=== PATIENT | female | born 1960 | race Caucasian/White ===

== ENCOUNTER 2017-04-22 13:18 | Emergency (ER) | payer OTHER ==
[~2017-04-22] VITALS: Ht 154.9 cm; Wt 70.4 kg
[~2017-04-22 13:18] MED LIST: BENZ1TAB10 PO; CITA20TA9 PO; CLOZ100 PO; LORA1TAB3 PO
[2017-04-22] MEDS ORDERED: HALO5 PO (13:28)
[2017-04-22] MEDS ORDERED: LORA10TA7 PO (13:28)
[2017-04-22] MEDS ORDERED: CLOZ100 PO (13:28)
[2017-04-22] MEDS ORDERED: METO25 PO (13:28)
[2017-04-22] MEDS ORDERED: BENA20 PO (13:28)
[2017-04-22] MEDS ORDERED: HYDR10 PO (13:28)
[2017-04-22 14:36] LABS: BASOPHILS % (AUTO) 0.5 % (0.0-2.0); EOSINOPHILS % (AUTO) 1.5 % (1.0-6.0); HEMATOCRIT 40.3 % (36-46); LYMPHOCYTES # (AUTO) 2.5 K/uL (1.0-4.8); LYMPHOCYTES % (AUTO) 36.2 % (22.0-44.0); MEAN CORPUSCULAR HEMOGLOBIN 29.5 pg (26.0-34.0); MEAN CORPUSCULAR HGB CONC 32.3 G/dL (31.0-37.0); MEAN CORPUSCULAR VOLUME 91 fL (80-100); MONOCYTES # (AUTO) 0.5 K/uL (0.1-1.0); MONOCYTES % (AUTO) 7.2 % (2.0-9.0); NEUTROPHILS # (AUTO) 3.8 K/uL (1.8-7.7); NEUTROPHILS % (AUTO) 54.6 % (40.0-70.0); PLATELET COUNT (AUTO) 136 K/uL (150-450); RED BLOOD CELL COUNT(AUTO) 4.41 MIL/uL (4.00-5.20); RED CELL DISTRIBUTION WIDTH 14.4 % (11.5-14.5); WHITE BLOOD COUNT (AUTO) 6.9 K/uL (4.5-11.0)
[2017-04-22 14:49] LABS: ANION GAP 9 mmol/L (8-16); CALCIUM, TOTAL 8.5 mg/dL (8.8-10.5); CARBON DIOXIDE 26 mmol/L (22-29); CHLORIDE 108 mmol/L (98-107); CREATININE 0.74 mg/dL (0.60-1.30); GLOMERULAR FILTR. RATE CALC > 60 mL/min (>60); POTASSIUM 3.9 mmol/L (3.5-5.1); SODIUM SERUM 143 mmol/L (136-145); UREA NITROGEN, BLOOD 9 mg/dL (7-18)
[2017-04-22 14:54] LABS: ALANINE AMINOTRANSFERASE 61 U/L (12-78); ALBUMIN 3.6 g/dL (3.4-5.0); ASPARTATE AMINOTRANSFERASE 31 U/L (15-37); BILIRUBIN,TOTAL 0.3 mg/dL (0.1-1.0); TOTAL PROTEIN, SERUM 6.5 g/dL (6.4-8.2)
[2017-04-22] MEDS ORDERED: LORazepam 2 MG TABLET PO ONE (15:45)
[2017-04-22] MEDS ORDERED: HALOPERIDOL 5 MG TABLET PO ONE (15:45)
[2017-04-22 16:06] VITALS: BP 149/89
== END 2017-04-22 16:44 | disposition home or self-care (01) ==
LOC: EMS 13:22 → EEVIPCON 13:22 → EMS 16:44
DX: F20.0 Paranoid schizophrenia (principal); I10 Essential (primary) hypertension; Z87.891 Personal history of nicotine dependence
CPT/HCPCS: 36415; 80053; 85025; 99284; G0480

== ENCOUNTER 2019-05-11 14:27 | Inpatient (IN) | payer MEDICAID, OTHER ==
[~2019-05-11] VITALS: Ht 152.4 cm; Wt 51.3 kg
[~2019-05-11 14:27] MED LIST changes: +BENA20 PO; +CITA-106 PO; -CITA20TA9 PO; +CLON.2 PO; +CLON.5 PO; +DIVA500T69 PO; +HALO5TAB2 PO; +HYDR10TA31 PO; +LEVO75TA10 PO; +LORA10TA7 PO; +METO25 PO
[2019-05-11 17:26] LABS: APPEARANCE,URINE CLOUDY (CLEAR); BILIRUBIN,URINE NEGATIVE (NEGATIVE); GLUCOSE, URINE (UA) NEGATIVE (NEGATIVE); KETONES,URINE TRACE mg/dL (NEGATIVE); LEUKOCYTE ESTERASE ,URINE MODERATE (NEGATIVE); NITRATE,URINE POSITIVE (NEGATIVE); OCCULT BLOOD,URINE NEGATIVE (NEGATIVE); PH,URINE 6.5 (5.0-8.0); PROTEIN,URINE NEGATIVE (NEGATIVE); UROBILINOGEN,URINE 0.2 mg/dL (<=1.0)
[2019-05-11 17:30] LABS: AMPHET/METH SCREEN,URINE NEGATIVE (NEGATIVE); BARBITURATE SCREEN, URINE NEGATIVE (NEGATIVE); BENZODIAZEPINES SCREEN,URINE NEGATIVE (NEGATIVE); CANNABINOID SCREEN,URINE NEGATIVE (NEGATIVE); COCAINE SCREEN,URINE NEGATIVE (NEGATIVE); METHADONE SCREEN, URINE NEGATIVE (NEGATIVE); OPIATE SCREEN,URINE NEGATIVE (NEGATIVE)
[2019-05-11 17:36] LABS: PHENCYCLIDINE SCREEN,URINE NEGATIVE (NEGATIVE)
[2019-05-11 17:42] LABS: BACTERIA,URINE Many /HPF (None Seen); RBC,URINE None Seen /HPF (0-2)
[2019-05-11 17:44] LABS: SQUAMOUS EPITHELIAL CELL,UR Rare /LPF (None Seen)
[2019-05-11 17:54] LABS: BASOPHILS % (AUTO) 0.6 % (0.0-2.0); EOSINOPHILS % (AUTO) 0.7 % (1.0-6.0); HEMATOCRIT 37.8 % (36-46); HEMOGLOBIN 12.9 g/dL (12.0-16.0); LYMPHOCYTES # (AUTO) 1.9 K/uL (1.0-4.8); LYMPHOCYTES % (AUTO) 24.8 % (22.0-44.0); MEAN CORPUSCULAR HEMOGLOBIN 31.9 pg (26.0-34.0); MEAN CORPUSCULAR HGB CONC 34.2 G/dL (31.0-37.0); MEAN CORPUSCULAR VOLUME 93 fL (80-100); MONOCYTES # (AUTO) 0.5 K/uL (0.1-1.0); MONOCYTES % (AUTO) 7.2 % (2.0-9.0); NEUTROPHILS # (AUTO) 5.1 K/uL (1.8-7.7); NEUTROPHILS % (AUTO) 66.7 % (40.0-70.0); PLATELET COUNT (AUTO) 216 K/uL (150-450); RED BLOOD CELL COUNT(AUTO) 4.05 MIL/uL (4.00-5.20); RED CELL DISTRIBUTION WIDTH 14.2 % (11.5-14.5)
[2019-05-11 18:10] LABS: ANION GAP 12 mmol/L (8-16); CALCIUM, TOTAL 9.8 mg/dL (8.8-10.5); CARBON DIOXIDE 25 mmol/L (22-29); CHLORIDE 107 mmol/L (98-107); CREATININE 0.71 mg/dL (0.60-1.30); GLOMERULAR FILTR. RATE CALC > 60 mL/min (>60); GLUCOSE,RANDOM 105 mg/dL (70-110); POTASSIUM 3.9 mmol/L (3.5-5.1); SODIUM SERUM 144 mmol/L (136-145); UREA NITROGEN, BLOOD 19 mg/dL (7-18)
[2019-05-11 18:25] LABS: ALANINE AMINOTRANSFERASE 13 U/L (12-78); ALBUMIN 3.9 g/dL (3.4-5.0); ALKALINE PHOSPHATASE 119 U/L (46-116); ASPARTATE AMINOTRANSFERASE 14 U/L (15-37); BILIRUBIN,TOTAL 0.3 mg/dL (0.1-1.0); THYROID STIMULATING HORMONE 7.73 uIU/mL (0.36-3.74); TOTAL PROTEIN, SERUM 8.2 g/dL (6.4-8.2); VALPROIC ACID 62 mcg/mL (50-100)
[2019-05-11] MEDS ORDERED: NITROFURANTOIN/NITROFURAN MAC 100 MG CAPSULE [MACROBID] PO ONE (20:30)
[2019-05-12] MEDS ORDERED: HALOPERIDOL 5 MG TABLET PO PRN (01:30)
[2019-05-12] MEDS ORDERED: LORazepam 2 MG TABLET PO PRN (01:30)
[2019-05-12] MEDS: ZOLPIDEM TARTRATE 10 MG TABLET PO PRN (03:10)
[2019-05-12 04:12] VITALS: BP 139/81
[2019-05-12] MEDS ORDERED: PNEUMOCOCCAL VACCINE POLYVALENT 0.5 ML VIAL [PPSV23] IM ONE (04:30)
[2019-05-12] MEDS ORDERED: CloNIDine HCL 0.1 MG TABLET PO PRN (08:15)
[2019-05-12] MEDS: NITROFURANTOIN/NITROFURAN MAC 100 MG CAPSULE [MACROBID] PO SCH ×2 (09:57→16:52)
[2019-05-12] MEDS: BENAZEPRIL HCL 20 MG TABLET PO SCH (09:57)
[2019-05-12] MEDS: LORATADINE 10 MG TABLET PO SCH (09:58)
[2019-05-12] MEDS: METOPROLOL TARTRATE 25 MG TABLET PO SCH (09:58)
[2019-05-12] MEDS ORDERED: GEMF600T5 PO (10:47)
[2019-05-12] MEDS ORDERED: OMEP20 PO (10:47)
[2019-05-12] MEDS ORDERED: DIVA-78 PO (10:47)
[2019-05-12 13:20] VITALS: BP 132/96
[2019-05-12 16:50] VITALS: BP 107/65
[2019-05-12] MEDS: CloZAPine 100 MG TABLET PO SCH (16:52)
[2019-05-12] MEDS: GEMFIBROZIL 600 MG TABLET PO SCH (16:52)
[2019-05-12] MEDS: OMEPRAZOLE 20 MG CAPSULE PO SCH (16:53)
[2019-05-12] MEDS: DIVALPROEX SODIUM 500 MG DR TABLET PO SCH (20:23)
[2019-05-13] MEDS: GEMFIBROZIL 600 MG TABLET PO SCH ×2 (06:09→17:32)
[2019-05-13] MEDS: LEVOTHYROXINE SODIUM 75 MCG TABLET PO SCH (06:09)
[2019-05-13 07:30] LABS: CHOL/HDL RATIO 5.8 (3.9-5.7)
[2019-05-13 08:00] VITALS: BP 112/74
[2019-05-13] MEDS: OMEPRAZOLE 20 MG CAPSULE PO SCH ×2 (08:50→17:32)
[2019-05-13] MEDS: CloZAPine 100 MG TABLET PO SCH ×2 (08:51→17:32)
[2019-05-13] MEDS: LORATADINE 10 MG TABLET PO SCH (08:52)
[2019-05-13] MEDS: BENAZEPRIL HCL 20 MG TABLET PO SCH (08:52)
[2019-05-13] MEDS: NITROFURANTOIN/NITROFURAN MAC 100 MG CAPSULE [MACROBID] PO SCH ×2 (08:52→17:32)
[2019-05-13] MEDS: METOPROLOL TARTRATE 25 MG TABLET PO SCH (08:52)
[2019-05-13 18:37] VITALS: BP 114/72
[2019-05-13] MEDS: DIVALPROEX SODIUM 500 MG DR TABLET PO SCH (20:44)
[2019-05-14] MEDS: LEVOTHYROXINE SODIUM 75 MCG TABLET PO SCH (06:55)
[2019-05-14] MEDS: GEMFIBROZIL 600 MG TABLET PO SCH ×2 (06:56→17:16)
[2019-05-14 08:10] VITALS: BP 96/65
[2019-05-14] MEDS: METOPROLOL TARTRATE 25 MG TABLET PO SCH ×2 (09:00→09:51)
[2019-05-14] MEDS: BENAZEPRIL HCL 20 MG TABLET PO SCH ×2 (09:00→09:51)
[2019-05-14] MEDS: LORATADINE 10 MG TABLET PO SCH (09:51)
[2019-05-14] MEDS: CloZAPine 100 MG TABLET PO SCH ×2 (09:51→17:15)
[2019-05-14] MEDS: NITROFURANTOIN/NITROFURAN MAC 100 MG CAPSULE [MACROBID] PO SCH ×2 (09:51→17:15)
[2019-05-14] MEDS: OMEPRAZOLE 20 MG CAPSULE PO SCH ×2 (09:52→17:15)
[2019-05-14 17:00] VITALS: BP 105/68
[2019-05-14] MEDS: DIVALPROEX SODIUM 500 MG DR TABLET PO SCH (20:27)
[2019-05-15] MEDS: LEVOTHYROXINE SODIUM 75 MCG TABLET PO SCH (06:01)
[2019-05-15] MEDS: GEMFIBROZIL 600 MG TABLET PO SCH ×2 (06:01→16:32)
[2019-05-15 06:35] LABS: FREE T4 (FREE THYROXINE) 0.94 ng/dL (0.76-1.46); THYROID STIMULATING HORMONE 1.95 uIU/mL (0.36-3.74)
[2019-05-15 08:27] VITALS: BP 96/65
[2019-05-15 09:35] VITALS: BP 111/71
[2019-05-15] MEDS: CloZAPine 100 MG TABLET PO SCH ×2 (09:39→16:32)
[2019-05-15] MEDS: OMEPRAZOLE 20 MG CAPSULE PO SCH ×2 (09:40→16:32)
[2019-05-15] MEDS: LORATADINE 10 MG TABLET PO SCH (09:40)
[2019-05-15] MEDS: NITROFURANTOIN/NITROFURAN MAC 100 MG CAPSULE [MACROBID] PO SCH ×2 (09:40→16:32)
[2019-05-15] MEDS: BENAZEPRIL HCL 20 MG TABLET PO SCH (09:40)
[2019-05-15] MEDS: METOPROLOL TARTRATE 25 MG TABLET PO SCH (09:40)
[2019-05-15 16:54] VITALS: BP 145/86
[2019-05-15] MEDS: DIVALPROEX SODIUM 500 MG DR TABLET PO SCH (20:27)
[2019-05-16] MEDS: LEVOTHYROXINE SODIUM 75 MCG TABLET PO SCH (06:16)
[2019-05-16] MEDS: GEMFIBROZIL 600 MG TABLET PO SCH ×2 (06:16→16:24)
[2019-05-16] MEDS: METOPROLOL TARTRATE 25 MG TABLET PO SCH (09:00)
[2019-05-16] MEDS: BENAZEPRIL HCL 20 MG TABLET PO SCH (09:00)
[2019-05-16 09:47] VITALS: BP 105/84
[2019-05-16] MEDS: CloZAPine 100 MG TABLET PO SCH ×2 (09:55→16:24)
[2019-05-16] MEDS: LORATADINE 10 MG TABLET PO SCH (09:55)
[2019-05-16] MEDS: NITROFURANTOIN/NITROFURAN MAC 100 MG CAPSULE [MACROBID] PO SCH ×2 (09:56→16:24)
[2019-05-16] MEDS: OMEPRAZOLE 20 MG CAPSULE PO SCH ×2 (09:56→16:24)
[2019-05-16 16:00] VITALS: BP 119/78
[2019-05-16] MEDS: DIVALPROEX SODIUM 500 MG DR TABLET PO SCH (20:05)
[2019-05-16] MEDS: ZOLPIDEM TARTRATE 10 MG TABLET PO PRN (22:36)
[2019-05-17] MEDS: GEMFIBROZIL 600 MG TABLET PO SCH ×2 (06:00→17:20)
[2019-05-17] MEDS: LEVOTHYROXINE SODIUM 75 MCG TABLET PO SCH (06:00)
[2019-05-17 08:51] VITALS: BP 145/86
[2019-05-17] MEDS: CloZAPine 100 MG TABLET PO SCH ×2 (09:31→17:20)
[2019-05-17] MEDS: LORATADINE 10 MG TABLET PO SCH (09:31)
[2019-05-17] MEDS: METOPROLOL TARTRATE 25 MG TABLET PO SCH (09:31)
[2019-05-17] MEDS: BENAZEPRIL HCL 20 MG TABLET PO SCH (09:32)
[2019-05-17] MEDS: OMEPRAZOLE 20 MG CAPSULE PO SCH ×2 (09:32→17:20)
[2019-05-17] MEDS ORDERED: IBUPROFEN 600 MG TABLET PO PRN (12:15)
[2019-05-17] MEDS ORDERED: ACETAMINOPHEN 325 MG TABLET PO PRN (12:15)
[2019-05-17 19:17] VITALS: BP 136/71
[2019-05-17] MEDS: DIVALPROEX SODIUM 500 MG DR TABLET PO SCH ×2 (20:18→20:49)
[2019-05-17] MEDS: ZOLPIDEM TARTRATE 10 MG TABLET PO PRN (20:52)
[2019-05-18 06:29] LABS: BASOPHILS % (AUTO) 0.6 % (0.0-2.0); EOSINOPHILS % (AUTO) 2.8 % (1.0-6.0); HEMOGLOBIN 10.4 g/dL (12.0-16.0); LYMPHOCYTES # (AUTO) 2.4 K/uL (1.0-4.8); LYMPHOCYTES % (AUTO) 43.8 % (22.0-44.0); MEAN CORPUSCULAR HEMOGLOBIN 31.9 pg (26.0-34.0); MEAN CORPUSCULAR HGB CONC 33.6 G/dL (31.0-37.0); MEAN CORPUSCULAR VOLUME 95 fL (80-100); MONOCYTES # (AUTO) 0.6 K/uL (0.1-1.0); NEUTROPHILS # (AUTO) 2.4 K/uL (1.8-7.7); NEUTROPHILS % (AUTO) 42.8 % (40.0-70.0); PLATELET COUNT (AUTO) 144 K/uL (150-450); RED BLOOD CELL COUNT(AUTO) 3.26 MIL/uL (4.00-5.20); RED CELL DISTRIBUTION WIDTH 13.8 % (11.5-14.5)
[2019-05-18] MEDS: LEVOTHYROXINE SODIUM 75 MCG TABLET PO SCH (06:50)
[2019-05-18] MEDS: GEMFIBROZIL 600 MG TABLET PO SCH (06:50)
[2019-05-18] MEDS: CloZAPine 100 MG TABLET PO SCH (09:12)
[2019-05-18] MEDS: METOPROLOL TARTRATE 25 MG TABLET PO SCH (09:12)
[2019-05-18] MEDS: BENAZEPRIL HCL 20 MG TABLET PO SCH (09:12)
[2019-05-18] MEDS: LORATADINE 10 MG TABLET PO SCH (09:12)
[2019-05-18] MEDS: OMEPRAZOLE 20 MG CAPSULE PO SCH (09:12)
[2019-05-18 09:18] VITALS: BP 147/88
== END 2019-05-18 14:45 | disposition home or self-care (01) | DRG 750 ==
LOC: EMS 14:36 → 3EI 05-12 02:45
PROVIDERS: ADMIT Psychiatry & Neurology Psychiatry; ATTEND Psychiatry & Neurology Psychiatry
DX: F20.0 Paranoid schizophrenia (principal); E03.9 Hypothyroidism, unspecified; F32.9 Major depressive disorder, single episode, unspecified; I10 Essential (primary) hypertension; N39.0 Urinary tract infection, site not specified; R32 Unspecified urinary incontinence; G47.00 Insomnia, unspecified; Z87.891 Personal history of nicotine dependence
CPT/HCPCS: 80074; 83036; 84439; 84443; 87081; 87086; G0480

== ENCOUNTER 2019-10-15 21:57 | Inpatient (IN) | payer MEDICAID, OTHER ==
[~2019-10-15] VITALS: Ht 154.9 cm; Wt 54.5 kg
[~2019-10-15 21:57] MED LIST changes: -BENA20 PO; +BENA20TA11 PO; -BENZ1TAB10 PO; -CITA-106 PO; -CLON.2 PO; -CLON.5 PO; +DIVA-78 PO; -DIVA500T69 PO; +GEMF600T5 PO; -HALO5TAB2 PO; -HYDR10TA31 PO; -LORA1TAB3 PO; +OMEP20 PO
[2019-10-16 01:59] LABS: ANION GAP 10 mmol/L (8-16); CALCIUM, TOTAL 9.6 mg/dL (8.8-10.5); CARBON DIOXIDE 26 mmol/L (22-29); CHLORIDE 104 mmol/L (98-107); CREATININE 0.68 mg/dL (0.60-1.30); GLOMERULAR FILTR. RATE CALC > 60 mL/min (>60); GLUCOSE,RANDOM 127 mg/dL (70-110); POTASSIUM 3.4 mmol/L (3.5-5.1); SODIUM SERUM 140 mmol/L (136-145); UREA NITROGEN, BLOOD 19 mg/dL (7-18)
[2019-10-16 02:00] LABS: BASOPHILS % (AUTO) 0.7 % (0.0-2.0); EOSINOPHILS % (AUTO) 1.9 % (1.0-6.0); HEMATOCRIT 30.9 % (36-46); HEMOGLOBIN 10.6 g/dL (12.0-16.0); LYMPHOCYTES # (AUTO) 2.2 K/uL (1.0-4.8); LYMPHOCYTES % (AUTO) 31.3 % (22.0-44.0); MEAN CORPUSCULAR HGB CONC 34.2 G/dL (31.0-37.0); MEAN CORPUSCULAR VOLUME 94 fL (80-100); MONOCYTES # (AUTO) 0.9 K/uL (0.1-1.0); NEUTROPHILS # (AUTO) 3.9 K/uL (1.8-7.7); NEUTROPHILS % (AUTO) 54.1 % (40.0-70.0); PLATELET COUNT (AUTO) 149 K/uL (150-450); RED CELL DISTRIBUTION WIDTH 14.2 % (11.5-14.5)
[2019-10-16 02:05] LABS: ALANINE AMINOTRANSFERASE 46 U/L (12-78); ALBUMIN 3.7 g/dL (3.4-5.0); ALKALINE PHOSPHATASE 107 U/L (46-116); ASPARTATE AMINOTRANSFERASE 88 U/L (15-37); BILIRUBIN,TOTAL 0.2 mg/dL (0.1-1.0); TOTAL PROTEIN, SERUM 7.4 g/dL (6.4-8.2)
[2019-10-16] MEDS ORDERED: ZOLPIDEM TARTRATE 10 MG TABLET PO PRN (02:15)
[2019-10-16] MEDS ORDERED: HALOPERIDOL 5 MG TABLET PO PRN (02:15)
[2019-10-16] MEDS ORDERED: LORazepam 2 MG TABLET PO PRN (02:15)
[2019-10-16 08:32] LABS: GLUCOSE,POINT OF CARE 120 MG/DL (70-110)
[2019-10-16] MEDS ORDERED: POTASSIUM CHLORIDE 20 MEQ ER TABLET PO ONE (18:15)
[2019-10-17] MEDS ORDERED: INFLUENZA VIRUS VACCINE QVS 2019-20 (3YR+)/PF 60 MCG/0.5 ML SYRINGE IM ONE (04:15)
[2019-10-17] MEDS ORDERED: PNEUMOCOCCAL VACCINE POLYVALENT 0.5 ML VIAL [PPSV23] IM ONE (04:15)
[2019-10-17 06:00] VITALS: BP 119/71
[2019-10-17] MEDS: GEMFIBROZIL 600 MG TABLET PO SCH ×2 (06:43→17:04)
[2019-10-17] MEDS: LEVOTHYROXINE SODIUM 75 MCG TABLET PO SCH (06:43)
[2019-10-17] MEDS: METOPROLOL TARTRATE 25 MG TABLET PO SCH (08:35)
[2019-10-17] MEDS: OMEPRAZOLE 20 MG CAPSULE PO SCH ×2 (08:35→17:04)
[2019-10-17] MEDS: LORATADINE 10 MG TABLET PO SCH (08:35)
[2019-10-17] MEDS: BENAZEPRIL HCL 10 MG TABLET PO SCH (08:35)
[2019-10-17] MEDS: CloZAPine 100 MG TABLET PO SCH ×2 (08:36→17:04)
[2019-10-17 08:51] VITALS: BP 130/74
[2019-10-17] MEDS ORDERED: BENAZEPRIL HCL 20 MG TABLET PO SCH (09:00)
[2019-10-17] MEDS ORDERED: DOCUSATE SODIUM 100 MG CAPSULE PO SCH (09:00)
[2019-10-17 09:13] LABS: HEMOGLOBIN A1C 5.2 % (4.5-6.2)
[2019-10-17] MEDS ORDERED: BISACODYL 5 MG EC TABLET PO PRN (09:30)
[2019-10-17] MEDS ORDERED: LACTULOSE 20 GM/30 ML SOLUTION UDCUP PO PRN (09:30)
[2019-10-17 09:32] LABS: CHOL/HDL RATIO 5.4 (3.9-5.7); FREE T4 (FREE THYROXINE) 1.07 ng/dL (0.76-1.46); POTASSIUM 3.6 mmol/L (3.5-5.1); THYROID STIMULATING HORMONE 2.23 uIU/mL (0.36-3.74)
[2019-10-17] MEDS: DOCUSATE SODIUM 250 MG CAPSULE PO SCH (17:04)
[2019-10-17] MEDS: DIVALPROEX SODIUM 500 MG DR TABLET PO SCH (20:16)
[2019-10-18] MEDS: GEMFIBROZIL 600 MG TABLET PO SCH ×2 (06:36→16:09)
[2019-10-18] MEDS: LEVOTHYROXINE SODIUM 75 MCG TABLET PO SCH (06:36)
[2019-10-18 06:39] VITALS: BP 106/62
[2019-10-18 08:30] VITALS: BP 112/77
[2019-10-18] MEDS: DOCUSATE SODIUM 250 MG CAPSULE PO SCH ×2 (08:30→16:09)
[2019-10-18] MEDS: LORATADINE 10 MG TABLET PO SCH (08:30)
[2019-10-18] MEDS: BENAZEPRIL HCL 10 MG TABLET PO SCH (08:30)
[2019-10-18] MEDS: CloZAPine 100 MG TABLET PO SCH ×2 (08:30→16:09)
[2019-10-18] MEDS: OMEPRAZOLE 20 MG CAPSULE PO SCH ×2 (08:30→16:09)
[2019-10-18] MEDS: METOPROLOL TARTRATE 25 MG TABLET PO SCH (08:30)
[2019-10-18 16:18] VITALS: BP 100/64
[2019-10-18] MEDS: DIVALPROEX SODIUM 500 MG DR TABLET PO SCH (20:12)
[2019-10-19 03:10] VITALS: BP 100/60
[2019-10-19] MEDS: LEVOTHYROXINE SODIUM 75 MCG TABLET PO SCH (06:31)
[2019-10-19] MEDS: GEMFIBROZIL 600 MG TABLET PO SCH ×2 (06:31→16:43)
[2019-10-19 08:33] VITALS: BP 111/72
[2019-10-19] MEDS: DOCUSATE SODIUM 250 MG CAPSULE PO SCH ×2 (08:37→16:43)
[2019-10-19] MEDS: METOPROLOL TARTRATE 25 MG TABLET PO SCH (08:37)
[2019-10-19] MEDS: LORATADINE 10 MG TABLET PO SCH (08:37)
[2019-10-19] MEDS: OMEPRAZOLE 20 MG CAPSULE PO SCH ×2 (08:37→16:43)
[2019-10-19] MEDS: BENAZEPRIL HCL 10 MG TABLET PO SCH (08:37)
[2019-10-19] MEDS: CloZAPine 100 MG TABLET PO SCH ×2 (08:38→16:43)
[2019-10-19] MEDS: IBUPROFEN 400 MG TABLET PO PRN (08:59)
[2019-10-19] MEDS: DIVALPROEX SODIUM 500 MG DR TABLET PO SCH (20:19)
[2019-10-19 20:40] VITALS: BP 111/62
[2019-10-20 06:26] VITALS: BP 100/60
[2019-10-20 06:29] VITALS: BP 100/60
[2019-10-20] MEDS: LEVOTHYROXINE SODIUM 75 MCG TABLET PO SCH (06:42)
[2019-10-20] MEDS: GEMFIBROZIL 600 MG TABLET PO SCH (06:42)
[2019-10-20 08:07] VITALS: BP 105/64
[2019-10-20 08:20] VITALS: BP 117/74
[2019-10-20] MEDS: LORATADINE 10 MG TABLET PO SCH (08:21)
[2019-10-20] MEDS: CloZAPine 100 MG TABLET PO SCH (08:21)
[2019-10-20] MEDS: DOCUSATE SODIUM 250 MG CAPSULE PO SCH (08:21)
[2019-10-20] MEDS: OMEPRAZOLE 20 MG CAPSULE PO SCH (08:21)
[2019-10-20] MEDS: METOPROLOL TARTRATE 25 MG TABLET PO SCH (08:21)
[2019-10-20] MEDS: BENAZEPRIL HCL 10 MG TABLET PO SCH (08:21)
[2019-10-20] MEDS: IBUPROFEN 400 MG TABLET PO PRN (08:37)
[2019-10-20] MEDS ORDERED: BENA10TA12 PO (11:13)
== END 2019-10-20 13:30 | disposition home or self-care (01) | DRG 750 ==
LOC: EMS 21:58 → B2S 10-16 06:53
PROVIDERS: ADMIT Psychiatry & Neurology Psychiatry; ATTEND Psychiatry & Neurology Psychiatry
DX: F20.0 Paranoid schizophrenia (principal); E03.9 Hypothyroidism, unspecified; E78.5 Hyperlipidemia, unspecified; E87.6 Hypokalemia; F44.9 Dissociative and conversion disorder, unspecified; I10 Essential (primary) hypertension; J30.9 Allergic rhinitis, unspecified; G47.00 Insomnia, unspecified; K21.9 Gastro-esophageal reflux disease without esophagitis; Z87.891 Personal history of nicotine dependence
CPT/HCPCS: 80074; 80159; 83036; 84132; 84439; 84443; 93005; G0480

== ENCOUNTER 2019-10-16 09:38 | Emergency (ER) | payer MEDICAID, OTHER ==
[~2019-10-16] VITALS: Ht 154.9 cm; Wt 64.1 kg
[2019-10-16 10:10] LABS: BASOPHILS % (AUTO) 0.5 % (0.0-2.0); EOSINOPHILS % (AUTO) 2.8 % (1.0-6.0); HEMATOCRIT 30.2 % (36-46); HEMOGLOBIN 10.4 g/dL (12.0-16.0); LYMPHOCYTES # (AUTO) 1.6 K/uL (1.0-4.8); LYMPHOCYTES % (AUTO) 26.8 % (22.0-44.0); MEAN CORPUSCULAR HEMOGLOBIN 32.2 pg (26.0-34.0); MEAN CORPUSCULAR HGB CONC 34.6 G/dL (31.0-37.0); MEAN CORPUSCULAR VOLUME 93 fL (80-100); MONOCYTES # (AUTO) 0.6 K/uL (0.1-1.0); MONOCYTES % (AUTO) 9.8 % (2.0-9.0); NEUTROPHILS # (AUTO) 3.6 K/uL (1.8-7.7); NEUTROPHILS % (AUTO) 60.1 % (40.0-70.0); PLATELET COUNT (AUTO) 150 K/uL (150-450); RED BLOOD CELL COUNT(AUTO) 3.24 MIL/uL (4.00-5.20); RED CELL DISTRIBUTION WIDTH 14.2 % (11.5-14.5)
[2019-10-16 10:12] LABS: ABG A-A DIFF O2 21.3 mmHg (10-20.0); ABG BASE EXCESS -2.7 mmol/L (-2.0-3.0); ABG CARBOXYHEMOGLOBIN 0.3 % (0.0-1.5); ABG HCO3 22.5 mmol/L (22.0-26.0); ABG METHEMOGLOBIN 0.2 % (0.0-1.5); ABG OXYGEN SATURATION 95.2 % (95.0-98.0); ABG OXYHEMOGLOBIN 94.7 % (94.0-100.0); ABG PCO2 36 mmHg (35-45); ABG PH 7.408 (7.35-7.450); ABG TOTAL HEMOGLOBIN 10.4 G/dL (12.0-18.0); PO2, ARTERIAL BG 86.1 mmHg (84.0-92.0); SOURCE, BLOOD GAS ARTERIAL; TEMPERATURE, FAHRENHEIT, BG 97.5 FAHREN (96.0-98.6)
[2019-10-16 10:13] LABS: SITE, BLOOD GAS LFT RADIAL
[2019-10-16 10:14] LABS: O2 DEVICE,BLOOD GAS ROOM AIR (ROOM AIR)
[2019-10-16 10:19] LABS: ANION GAP 9 mmol/L (8-16); CALCIUM, TOTAL 9.1 mg/dL (8.8-10.5); CARBON DIOXIDE 25 mmol/L (22-29); CHLORIDE 105 mmol/L (98-107); CREATININE 0.59 mg/dL (0.60-1.30); GLOMERULAR FILTR. RATE CALC > 60 mL/min (>60); GLUCOSE,RANDOM 121 mg/dL (70-110); POTASSIUM 4.1 mmol/L (3.5-5.1); SODIUM SERUM 139 mmol/L (136-145); UREA NITROGEN, BLOOD 14 mg/dL (7-18)
[2019-10-16 10:28] LABS: AMMONIA 16 umol/L (11-32); TROPONIN I < 0.02 ng/mL (0.00-0.05)
[2019-10-16 11:09] VITALS: BP 139/52
== END 2019-10-16 11:30 | disposition home or self-care (01) ==
LOC: EMS 09:41
DX: F20.0 Paranoid schizophrenia (principal); F44.9 Dissociative and conversion disorder, unspecified; F20.2 Catatonic schizophrenia; R53.83 Other fatigue; I10 Essential (primary) hypertension; G47.00 Insomnia, unspecified; Z87.891 Personal history of nicotine dependence; Z79.899 Other long term (current) drug therapy; Z98.890 Other specified postprocedural states
CPT/HCPCS: 36600; 51702; 82805

== ENCOUNTER 2020-06-25 14:54 | Emergency (ER) | payer OTHER ==
[~2020-06-25] VITALS: Ht 157.5 cm; Wt 68.2 kg
[~2020-06-25 14:54] MED LIST changes: +BENA10TA77 PO; -BENA20TA11 PO; -CLOZ100 PO; +CLOZ100T32 PO; +DIVA-112 PO; -DIVA-78 PO
[2020-06-25] MEDS ORDERED: DIAZ2 PO (15:22)
[2020-06-25] MEDS ORDERED: DIVA125T32 PO (15:22)
[2020-06-25] MEDS ORDERED: CLON.5 PO (15:22)
[2020-06-25] MEDS ORDERED: CLOZ25TA5 PO (15:22)
[2020-06-25 15:40] LABS: BASOPHILS % (AUTO) 0.5 % (0.0-2.0); EOSINOPHILS % (AUTO) 0.6 % (1.0-6.0); HEMATOCRIT 36.2 % (36-46); HEMOGLOBIN 12.4 g/dL (12.0-16.0); LYMPHOCYTES # (AUTO) 1.9 K/uL (1.0-4.8); LYMPHOCYTES % (AUTO) 28.9 % (22.0-44.0); MEAN CORPUSCULAR HEMOGLOBIN 32.2 pg (26.0-34.0); MEAN CORPUSCULAR HGB CONC 34.4 G/dL (31.0-37.0); MEAN CORPUSCULAR VOLUME 94 fL (80-100); MONOCYTES # (AUTO) 0.6 K/uL (0.1-1.0); MONOCYTES % (AUTO) 8.6 % (2.0-9.0); NEUTROPHILS % (AUTO) 61.4 % (40.0-70.0); PLATELET COUNT (AUTO) 121 K/uL (150-450); RED BLOOD CELL COUNT(AUTO) 3.87 MIL/uL (4.00-5.20); RED CELL DISTRIBUTION WIDTH 14.3 % (11.5-14.5)
[2020-06-25 15:49] LABS: ANION GAP 10 mmol/L (8-16); CALCIUM, TOTAL 9.5 mg/dL (8.8-10.5); CARBON DIOXIDE 26 mmol/L (22-29); CHLORIDE 105 mmol/L (98-107); CREATININE 0.88 mg/dL (0.60-1.30); GLOMERULAR FILTR. RATE CALC > 60 mL/min (>60); GLUCOSE,RANDOM 114 mg/dL (70-110); POTASSIUM 4.1 mmol/L (3.5-5.1); SODIUM SERUM 141 mmol/L (136-145); UREA NITROGEN, BLOOD 19 mg/dL (7-18)
[2020-06-25 15:56] LABS: ALANINE AMINOTRANSFERASE 25 U/L (12-78); ALKALINE PHOSPHATASE 132 U/L (46-116); ASPARTATE AMINOTRANSFERASE 19 U/L (15-37); BILIRUBIN,TOTAL 0.2 mg/dL (0.1-1.0); TOTAL PROTEIN, SERUM 7.4 g/dL (6.4-8.2); VALPROIC ACID 33 mcg/mL (50-100)
[2020-06-25 18:11] VITALS: BP 128/40
[2020-06-25] MEDS ORDERED: HALOPERIDOL 5 MG TABLET PO ONE (18:30)
== END 2020-06-25 19:46 | disposition home or self-care (01) ==
LOC: EMS 14:55
DX: F20.9 Schizophrenia, unspecified (principal); I10 Essential (primary) hypertension; Z87.891 Personal history of nicotine dependence; Z79.899 Other long term (current) drug therapy
CPT/HCPCS: 36415; 80053; 80164; 85025; 99284; G0480

== ENCOUNTER 2022-03-31 17:19 | Emergency (ER) | payer OTHER ==
[~2022-03-31] VITALS: Ht 154.9 cm; Wt 62.0 kg
[~2022-03-31 17:19] MED LIST changes: +CLON-592 PO; +CLOZ25TA5 PO; +DIAZ2 PO; +DIVA125T32 PO; -GEMF600T5 PO; +GEMF600T90 PO
[2022-03-31 17:59] LABS: BASOPHILS % (AUTO) 0.9 % (0.0-2.0); EOSINOPHILS % (AUTO) 2.2 % (1.0-6.0); HEMATOCRIT 38.8 % (36-46); HEMOGLOBIN 12.9 g/dL (12.0-16.0); LYMPHOCYTES # (AUTO) 2.9 K/uL (1.0-4.8); LYMPHOCYTES % (AUTO) 48.1 % (22.0-44.0); MEAN CORPUSCULAR HEMOGLOBIN 30.4 pg (26.0-34.0); MEAN CORPUSCULAR HGB CONC 33.4 G/dL (31.0-37.0); MEAN CORPUSCULAR VOLUME 91 fL (80-100); MONOCYTES # (AUTO) 0.4 K/uL (0.1-1.0); MONOCYTES % (AUTO) 7.3 % (2.0-9.0); NEUTROPHILS # (AUTO) 2.5 K/uL (1.8-7.7); NEUTROPHILS % (AUTO) 41.5 % (40.0-70.0); PLATELET COUNT (AUTO) 169 K/uL (150-450); RED BLOOD CELL COUNT(AUTO) 4.26 MIL/uL (4.00-5.20); RED CELL DISTRIBUTION WIDTH 13.9 % (11.5-14.5)
[2022-03-31] MEDS ORDERED: DIVA-112 PO (18:03)
[2022-03-31] MEDS ORDERED: ATOR20TA86 PO (18:03)
[2022-03-31] MEDS ORDERED: OLAN10TA22 PO (18:03)
[2022-03-31] MEDS ORDERED: TRAZ150T79 PO (18:03)
[2022-03-31 18:05] LABS: ANION GAP 9 mmol/L (8-16); CALCIUM, TOTAL 9.5 mg/dL (8.8-10.5); CARBON DIOXIDE 26 mmol/L (22-29); CHLORIDE 104 mmol/L (98-107); CREATININE 0.89 mg/dL (0.60-1.30); GLOMERULAR FILTR. RATE CALC > 60 mL/min (>60); GLUCOSE,RANDOM 127 mg/dL (70-110); POTASSIUM 4.3 mmol/L (3.5-5.1); SODIUM SERUM 139 mmol/L (136-145); UREA NITROGEN, BLOOD 20 mg/dL (7-18)
[2022-03-31 18:05] LABS: AMPHET/METH SCREEN,URINE NEGATIVE (NEGATIVE); BARBITURATE SCREEN, URINE NEGATIVE (NEGATIVE); BENZODIAZEPINES SCREEN,URINE NEGATIVE (NEGATIVE); CANNABINOID SCREEN,URINE NEGATIVE (NEGATIVE); COCAINE SCREEN,URINE NEGATIVE (NEGATIVE); METHADONE SCREEN, URINE NEGATIVE (NEGATIVE); OPIATE SCREEN,URINE NEGATIVE (NEGATIVE)
[2022-03-31 18:06] LABS: PHENCYCLIDINE SCREEN,URINE NEGATIVE (NEGATIVE)
[2022-03-31 18:11] LABS: ALANINE AMINOTRANSFERASE 60 U/L (12-78); ALBUMIN 3.4 g/dL (3.4-5.0); ALKALINE PHOSPHATASE 73 U/L (46-116); ASPARTATE AMINOTRANSFERASE 38 U/L (15-37); BILIRUBIN,TOTAL 0.2 mg/dL (0.1-1.0); TOTAL PROTEIN, SERUM 7.2 g/dL (6.4-8.2)
[2022-03-31 18:25] LABS: VALPROIC ACID 65 mcg/mL (50-100)
[2022-03-31 19:15] VITALS: BP 129/74
== END 2022-03-31 19:19 | disposition home or self-care (01) ==
LOC: EMS 17:22
DX: F20.0 Paranoid schizophrenia (principal); I10 Essential (primary) hypertension; E78.00 Pure hypercholesterolemia, unspecified; Z87.891 Personal history of nicotine dependence
CPT/HCPCS: 36415; 80053; 80164; 80307; 85025; 99283; G0480

== ENCOUNTER 2023-02-01 12:13 | Inpatient (IN) | payer MEDICAID, OTHER ==
[~2023-02-01] VITALS: Ht 154.9 cm; Wt 65.9 kg
[~2023-02-01 12:13] MED LIST changes: +ATOR20TA86 PO; -CLOZ100T32 PO; -CLOZ25TA5 PO; -DIVA125T32 PO; -GEMF600T90 PO; -LORA10TA7 PO; +OLAN10TA22 PO; -OMEP20 PO; +TRAZ150T79 PO
[2023-02-01] MEDS ORDERED: OLANZapine 5 MG RAPDIS TABLET PO ONE (15:30)
[2023-02-01] MEDS ORDERED: DiphenhydrAMINE HCL 50 MG CAPSULE PO ONE (15:30)
[2023-02-01] MEDS ORDERED: LORazepam 2 MG TABLET PO ONE (15:30)
[2023-02-01] MEDS ORDERED: GEMF600T89 PO (15:38)
[2023-02-01] MEDS ORDERED: CETI10TA58 PO (15:38)
[2023-02-01] MEDS ORDERED: OLAN15TA36 PO (15:38)
[2023-02-01] MEDS ORDERED: FLUT16SP NASAL (15:38)
[2023-02-01 15:55] LABS: BASOPHILS % (AUTO) 0.6 % (0.0-2.0); EOSINOPHILS % (AUTO) 2.2 % (1.0-6.0); HEMATOCRIT 40.1 % (36-46); HEMOGLOBIN 13.1 g/dL (12.0-16.0); LYMPHOCYTES # (AUTO) 3.3 K/uL (1.0-4.8); LYMPHOCYTES % (AUTO) 55.1 % (22.0-44.0); MEAN CORPUSCULAR HEMOGLOBIN 30.8 pg (26.0-34.0); MEAN CORPUSCULAR HGB CONC 32.6 G/dL (31.0-37.0); MEAN CORPUSCULAR VOLUME 94 fL (80-100); MONOCYTES # (AUTO) 0.4 K/uL (0.1-1.0); MONOCYTES % (AUTO) 7.4 % (2.0-9.0); NEUTROPHILS # (AUTO) 2.1 K/uL (1.8-7.7); NEUTROPHILS % (AUTO) 34.7 % (40.0-70.0); PLATELET COUNT (AUTO) 164 K/uL (150-450); RED BLOOD CELL COUNT(AUTO) 4.25 MIL/uL (4.00-5.20); RED CELL DISTRIBUTION WIDTH 14.4 % (11.5-14.5)
[2023-02-01 16:03] LABS: ANION GAP 10 mmol/L (8-16); CALCIUM, TOTAL 10.6 mg/dL (8.8-10.5); CARBON DIOXIDE 25 mmol/L (22-29); CHLORIDE 106 mmol/L (98-107); CREATININE 0.68 mg/dL (0.60-1.30); GLOMERULAR FILTR. RATE CALC > 60 mL/min (>60); GLUCOSE,RANDOM 111 mg/dL (70-110); POTASSIUM 4.9 mmol/L (3.5-5.1); SODIUM SERUM 141 mmol/L (136-145); UREA NITROGEN, BLOOD 12 mg/dL (7-18)
[2023-02-01 16:18] LABS: ALANINE AMINOTRANSFERASE 58 U/L (12-78); ALBUMIN 3.9 g/dL (3.4-5.0); ALKALINE PHOSPHATASE 105 U/L (46-116); ASPARTATE AMINOTRANSFERASE 58 U/L (15-37); BILIRUBIN,TOTAL 0.2 mg/dL (0.1-1.0); THYROID STIMULATING HORMONE 13.46 uIU/mL (0.36-3.74); TOTAL PROTEIN, SERUM 7.8 g/dL (6.4-8.2); VALPROIC ACID 61 mcg/mL (50-100)
[2023-02-01 16:20] LABS: COVID AG,FIA SOURCE NASOPHARYNGEAL
[2023-02-01] MEDS ORDERED: HALOPERIDOL 5 MG TABLET PO PRN (17:00)
[2023-02-01] MEDS ORDERED: LEVOTHYROXINE SODIUM 100 MCG TABLET PO ONE (17:15)
[2023-02-02 01:30] VITALS: BP 158/96
[2023-02-02 01:45] VITALS: BP 143/92
[2023-02-02 01:50] VITALS: BP 143/92
[2023-02-02] MEDS ORDERED: LEVOTHYROXINE SODIUM 75 MCG TABLET PO ONE (07:30)
[2023-02-02] MEDS ORDERED: CETIRIZINE HCL 10 MG TABLET PO PRN (07:30)
[2023-02-02] MEDS ORDERED: FLUTICASONE PROPIONATE 50 MCG/SPRAY 16 GM NASAL SPRAY NASAL PRN (07:45)
[2023-02-02 08:00] VITALS: BP 130/60
[2023-02-02] MEDS: BENAZEPRIL HCL 10 MG TABLET PO SCH (08:34)
[2023-02-02] MEDS: METOPROLOL TARTRATE 25 MG TABLET PO SCH (08:34)
[2023-02-02] MEDS: DIVALPROEX SODIUM 500 MG DR TABLET PO SCH ×2 (11:25→16:38)
[2023-02-02] MEDS: SERTRALINE HCL 50 MG TABLET PO SCH (11:25)
[2023-02-02] MEDS ORDERED: ACETAMINOPHEN 325 MG TABLET PO PRN (11:30)
[2023-02-02] MEDS ORDERED: DOCUSATE SODIUM 100 MG CAPSULE PO PRN (11:30)
[2023-02-02] MEDS ORDERED: ONDANSETRON HCL 4 MG TABLET PO PRN (11:30)
[2023-02-02] MEDS ORDERED: NICOTINE 14 MG/24 HOUR PATCH TD PRN (11:30)
[2023-02-02] MEDS ORDERED: PETROLATUM,WHITE 28 GM JELLY TP PRN (11:30)
[2023-02-02] MEDS ORDERED: MAGNESIUM HYDROXIDE SUSPENSION 30 ML UDCUP PO PRN (11:30)
[2023-02-02] MEDS ORDERED: ALBUTEROL SULFATE HFA 90 MCG/PUFF 8 GM INHALER IH PRN (11:30)
[2023-02-02] MEDS ORDERED: LOPERAMIDE HCL 2 MG CAPSULE PO PRN (11:30)
[2023-02-02] MEDS ORDERED: IBUPROFEN 400 MG TABLET PO PRN (11:30)
[2023-02-02] MEDS ORDERED: MAG HYDROX/AL HYDROX/SIMETH ES 30 ML SUSPENSION UDCUP PO PRN (11:30)
[2023-02-02] MEDS ORDERED: CloNIDine HCL 0.1 MG TABLET PO PRN (11:30)
[2023-02-02] MEDS ORDERED: GuaiFENesin/D-METHORPHAN [SUGAR-FREE] 200-20MG/10 ML SYRUP UDCUP PO PRN (11:30)
[2023-02-02 16:00] VITALS: BP 147/70
[2023-02-02] MEDS: GEMFIBROZIL 600 MG TABLET PO SCH (16:38)
[2023-02-02] MEDS: LORazepam 2 MG TABLET PO PRN (20:01)
[2023-02-02 21:00] VITALS: BP 150/72
[2023-02-02] MEDS: ATORVASTATIN CALCIUM 20 MG TABLET PO SCH (21:10)
[2023-02-02] MEDS: OLANZapine 7.5 MG TABLET PO SCH (21:10)
[2023-02-02] MEDS: ZOLPIDEM TARTRATE 10 MG TABLET PO PRN (21:10)
[2023-02-03] MEDS: GEMFIBROZIL 600 MG TABLET PO SCH ×2 (06:12→16:52)
[2023-02-03 08:00] VITALS: BP 163/96
[2023-02-03] MEDS: BENAZEPRIL HCL 10 MG TABLET PO SCH (09:30)
[2023-02-03] MEDS: DIVALPROEX SODIUM 500 MG DR TABLET PO SCH ×2 (09:31→16:52)
[2023-02-03] MEDS: SERTRALINE HCL 50 MG TABLET PO SCH (09:31)
[2023-02-03] MEDS: METOPROLOL TARTRATE 25 MG TABLET PO SCH (09:32)
[2023-02-03 16:25] VITALS: BP 138/75
[2023-02-03] MEDS: OLANZapine 7.5 MG TABLET PO SCH (21:07)
[2023-02-03] MEDS: ATORVASTATIN CALCIUM 20 MG TABLET PO SCH (21:07)
[2023-02-03] MEDS: ZOLPIDEM TARTRATE 10 MG TABLET PO PRN (21:07)
[2023-02-03 21:23] VITALS: BP 139/75
[2023-02-03] MEDS: LORazepam 2 MG TABLET PO PRN (21:59)
[2023-02-04] MEDS: GEMFIBROZIL 600 MG TABLET PO SCH ×2 (06:28→17:14)
[2023-02-04 08:00] VITALS: BP 126/73
[2023-02-04] MEDS: BENAZEPRIL HCL 10 MG TABLET PO SCH (09:11)
[2023-02-04] MEDS: METOPROLOL TARTRATE 25 MG TABLET PO SCH (09:14)
[2023-02-04] MEDS: DIVALPROEX SODIUM 500 MG DR TABLET PO SCH ×2 (09:14→17:14)
[2023-02-04] MEDS: SERTRALINE HCL 50 MG TABLET PO SCH (09:14)
[2023-02-04 16:35] VITALS: BP 132/73
[2023-02-04] MEDS: ATORVASTATIN CALCIUM 20 MG TABLET PO SCH (20:58)
[2023-02-04] MEDS: OLANZapine 7.5 MG TABLET PO SCH (20:58)
[2023-02-04 21:07] VITALS: BP 117/74
[2023-02-04] MEDS: ZOLPIDEM TARTRATE 10 MG TABLET PO PRN (23:51)
[2023-02-05] MEDS: GEMFIBROZIL 600 MG TABLET PO SCH ×2 (07:05→16:20)
[2023-02-05 08:15] VITALS: BP 154/91
[2023-02-05] MEDS: DIVALPROEX SODIUM 500 MG DR TABLET PO SCH ×2 (08:25→16:20)
[2023-02-05] MEDS: SERTRALINE HCL 50 MG TABLET PO SCH (08:26)
[2023-02-05] MEDS: BENAZEPRIL HCL 10 MG TABLET PO SCH (08:26)
[2023-02-05] MEDS: METOPROLOL TARTRATE 25 MG TABLET PO SCH (08:26)
[2023-02-05 16:22] VITALS: BP 124/67
[2023-02-05 20:30] VITALS: BP 127/80
[2023-02-05] MEDS: ATORVASTATIN CALCIUM 20 MG TABLET PO SCH (21:11)
[2023-02-05] MEDS: OLANZapine 7.5 MG TABLET PO SCH (21:11)
[2023-02-05] MEDS: ZOLPIDEM TARTRATE 10 MG TABLET PO PRN (21:12)
[2023-02-06] MEDS: GEMFIBROZIL 600 MG TABLET PO SCH ×2 (06:38→16:38)
[2023-02-06] MEDS: SERTRALINE HCL 50 MG TABLET PO SCH (08:38)
[2023-02-06] MEDS: DIVALPROEX SODIUM 500 MG DR TABLET PO SCH ×2 (08:38→16:38)
[2023-02-06] MEDS: BENAZEPRIL HCL 10 MG TABLET PO SCH (08:38)
[2023-02-06] MEDS: METOPROLOL TARTRATE 25 MG TABLET PO SCH (08:38)
[2023-02-06 13:51] VITALS: BP 149/89
[2023-02-06 16:16] VITALS: BP 133/75
[2023-02-06] MEDS: ZOLPIDEM TARTRATE 10 MG TABLET PO PRN (20:51)
[2023-02-06] MEDS: ATORVASTATIN CALCIUM 20 MG TABLET PO SCH (20:56)
[2023-02-06] MEDS: OLANZapine 7.5 MG TABLET PO SCH (20:56)
[2023-02-06 21:32] VITALS: BP 125/78
[2023-02-07] MEDS: GEMFIBROZIL 600 MG TABLET PO SCH ×2 (06:09→17:04)
[2023-02-07 06:50] LABS: COVID AG,FIA SOURCE NASAL SWAB
[2023-02-07] MEDS: METOPROLOL TARTRATE 25 MG TABLET PO SCH (09:35)
[2023-02-07] MEDS: DIVALPROEX SODIUM 500 MG DR TABLET PO SCH ×2 (09:35→17:04)
[2023-02-07] MEDS: BENAZEPRIL HCL 10 MG TABLET PO SCH (09:36)
[2023-02-07] MEDS: SERTRALINE HCL 50 MG TABLET PO SCH (09:36)
[2023-02-07 10:20] VITALS: BP 128/73
[2023-02-07 16:35] VITALS: BP 123/72
[2023-02-07] MEDS: ATORVASTATIN CALCIUM 20 MG TABLET PO SCH (20:34)
[2023-02-07] MEDS: OLANZapine 7.5 MG TABLET PO SCH (20:34)
[2023-02-07 21:15] VITALS: BP 145/85
[2023-02-08] MEDS: ZOLPIDEM TARTRATE 10 MG TABLET PO PRN ×2 (02:27→21:22)
[2023-02-08] MEDS: GEMFIBROZIL 600 MG TABLET PO SCH ×2 (06:43→17:09)
[2023-02-08 08:04] VITALS: BP 146/86
[2023-02-08] MEDS: SERTRALINE HCL 50 MG TABLET PO SCH (08:12)
[2023-02-08] MEDS: METOPROLOL TARTRATE 25 MG TABLET PO SCH (08:12)
[2023-02-08] MEDS: DIVALPROEX SODIUM 500 MG DR TABLET PO SCH ×2 (08:12→17:09)
[2023-02-08] MEDS: BENAZEPRIL HCL 10 MG TABLET PO SCH (08:12)
[2023-02-08] MEDS: LORazepam 2 MG TABLET PO PRN (14:52)
[2023-02-08 16:06] VITALS: BP 126/78
[2023-02-08 20:31] VITALS: BP 112/74
[2023-02-08] MEDS: ATORVASTATIN CALCIUM 20 MG TABLET PO SCH (20:50)
[2023-02-08] MEDS: OLANZapine 7.5 MG TABLET PO SCH (20:50)
[2023-02-09] MEDS: GEMFIBROZIL 600 MG TABLET PO SCH (06:59)
[2023-02-09 08:30] VITALS: BP 134/100
[2023-02-09] MEDS: DIVALPROEX SODIUM 500 MG DR TABLET PO SCH (08:50)
[2023-02-09] MEDS: METOPROLOL TARTRATE 25 MG TABLET PO SCH (08:50)
[2023-02-09] MEDS: BENAZEPRIL HCL 10 MG TABLET PO SCH (08:50)
[2023-02-09] MEDS: SERTRALINE HCL 50 MG TABLET PO SCH (08:50)
[2023-02-09] MEDS ORDERED: SERT-158 PO (10:52)
== END 2023-02-09 17:32 | disposition home or self-care (01) | DRG 750 ==
LOC: EMS 12:17 → 3EI 02-02 01:00
PROVIDERS: ADMIT Psychiatry & Neurology Child & Adolescent Psychiatry; ATTEND Psychiatry & Neurology Child & Adolescent Psychiatry
DX: F20.9 Schizophrenia, unspecified (principal); E03.9 Hypothyroidism, unspecified; F99 Mental disorder, not otherwise specified; E78.00 Pure hypercholesterolemia, unspecified; I10 Essential (primary) hypertension; Z20.822 Contact with and (suspected) exposure to COVID-19; J30.9 Allergic rhinitis, unspecified; K21.9 Gastro-esophageal reflux disease without esophagitis; Z87.891 Personal history of nicotine dependence
CPT/HCPCS: 80053; 80164; 84439; 84443; 85025; 99285; G0480

== ENCOUNTER 2023-02-24 09:04 | Inpatient (IN) | payer MEDICAID ==
[~2023-02-24] VITALS: Ht 154.9 cm; Wt 68.5 kg
[~2023-02-24 09:04] MED LIST changes: -CLON-592 PO; -DIAZ2 PO; +GEMF600T89 PO; -LEVO75TA10 PO; -OLAN10TA22 PO; +OLAN15TA36 PO; +SERT-158 PO; -TRAZ150T79 PO
[2023-02-24] MEDS ORDERED: HALOPERIDOL LACTATE 5 MG/ML VIAL ONE (09:54)
[2023-02-24] MEDS ORDERED: LORazepam 2 MG/ML VIAL ONE (09:54)
[2023-02-24] MEDS ORDERED: DiphenhydrAMINE HCL 50 MG/ML VIAL ONE (09:55)
[2023-02-24 09:56] LABS: GLUCOMETER DEV NAME(LOC) POC.BV
[2023-02-24 10:15] VITALS: BP 155/90
[2023-02-24] MEDS ORDERED: DiphenhydrAMINE HCL 50 MG/ML VIAL IM ONE (11:30)
[2023-02-24] MEDS ORDERED: LORazepam 2 MG/ML VIAL IM ONE (11:30)
[2023-02-24] MEDS ORDERED: HALOPERIDOL LACTATE 5 MG/ML VIAL IM ONE (11:30)
[2023-02-24 16:39] VITALS: BP 158/92
[2023-02-24] MEDS: GEMFIBROZIL 600 MG TABLET PO SCH (20:14)
[2023-02-24] MEDS: DIVALPROEX SODIUM 500 MG DR TABLET PO SCH (20:14)
[2023-02-24 20:41] VITALS: BP 143/82
[2023-02-24] MEDS: ATORVASTATIN CALCIUM 20 MG TABLET PO SCH (21:14)
[2023-02-24] MEDS: OLANZapine 7.5 MG TABLET PO SCH (21:15)
[2023-02-24] MEDS ORDERED: PNEUMOCOCCAL VACCINE POLYVALENT 0.5 ML VIAL [PPSV23] IM. ONE (22:00)
[2023-02-24] MEDS ORDERED: INFLUENZA VIRUS VACCINE QVS 2022-23 (6MO+)/PF 60 MCG/0.5 ML SYRINGE IM. ONE (22:00)
[2023-02-25] MEDS: GEMFIBROZIL 600 MG TABLET PO SCH ×2 (06:31→19:49)
[2023-02-25] MEDS ORDERED: PETROLATUM,WHITE 28 GM JELLY TP PRN (07:00)
[2023-02-25] MEDS ORDERED: CloNIDine HCL 0.1 MG TABLET PO PRN (07:00)
[2023-02-25] MEDS ORDERED: GuaiFENesin/D-METHORPHAN [SUGAR-FREE] 200-20MG/10 ML SYRUP UDCUP PO PRN (07:00)
[2023-02-25] MEDS ORDERED: NICOTINE 14 MG/24 HOUR PATCH TD PRN (07:00)
[2023-02-25] MEDS ORDERED: MAGNESIUM HYDROXIDE SUSPENSION 30 ML UDCUP PO PRN (07:00)
[2023-02-25] MEDS ORDERED: DOCUSATE SODIUM 100 MG CAPSULE PO PRN (07:00)
[2023-02-25] MEDS ORDERED: ALBUTEROL SULFATE HFA 90 MCG/PUFF 8 GM INHALER IH PRN (07:00)
[2023-02-25] MEDS ORDERED: IBUPROFEN 400 MG TABLET PO PRN (07:00)
[2023-02-25] MEDS ORDERED: LOPERAMIDE HCL 2 MG CAPSULE PO PRN (07:00)
[2023-02-25] MEDS ORDERED: ONDANSETRON HCL 4 MG TABLET PO PRN (07:00)
[2023-02-25 07:24] LABS: BASOPHILS % (AUTO) 0.9 % (0.0-2.0); EOSINOPHILS % (AUTO) 1.7 % (1.0-6.0); HEMATOCRIT 34.1 % (36-46); HEMOGLOBIN 11.8 g/dL (12.0-16.0); LYMPHOCYTES % (AUTO) 52.1 % (22.0-44.0); MEAN CORPUSCULAR HEMOGLOBIN 32.5 pg (26.0-34.0); MEAN CORPUSCULAR HGB CONC 34.7 G/dL (31.0-37.0); MEAN CORPUSCULAR VOLUME 94 fL (80-100); MONOCYTES # (AUTO) 0.8 K/uL (0.1-1.0); MONOCYTES % (AUTO) 10.1 % (2.0-9.0); NEUTROPHILS # (AUTO) 2.7 K/uL (1.8-7.7); NEUTROPHILS % (AUTO) 35.2 % (40.0-70.0); PLATELET COUNT (AUTO) 202 K/uL (150-450); RED BLOOD CELL COUNT(AUTO) 3.64 MIL/uL (4.00-5.20)
[2023-02-25 07:33] LABS: HEMOGLOBIN A1C 6.2 % (3.8-5.6)
[2023-02-25 07:53] LABS: ALANINE AMINOTRANSFERASE 45 U/L (12-78); ALBUMIN 3.2 g/dL (3.4-5.0); ALKALINE PHOSPHATASE 77 U/L (46-116); ANION GAP 6 mmol/L (8-16); ASPARTATE AMINOTRANSFERASE 35 U/L (15-37); BILIRUBIN,TOTAL 0.1 mg/dL (0.1-1.0); CALCIUM, TOTAL 9.7 mg/dL (8.8-10.5); CARBON DIOXIDE 24 mmol/L (22-29); CHLORIDE 108 mmol/L (98-107); CHOL/HDL RATIO 3.6 (3.9-5.7); CHOLESTEROL 148 mg/dL (131-200); CREATININE 0.66 mg/dL (0.60-1.30); FREE T4 (FREE THYROXINE) 0.86 ng/dL (0.76-1.46); GLOMERULAR FILTR. RATE CALC > 60 mL/min (>60); GLUCOSE,RANDOM 121 mg/dL (70-110); HCG,QUANTITATIVE 2 mIU/mL (0-6); HDL CHOLESTEROL 41 mg/dL (40-60); LDL CHOL (CALC.) 87 mg/dL (0-130); POTASSIUM 4.4 mmol/L (3.5-5.1); SODIUM SERUM 138 mmol/L (136-145); THYROID STIMULATING HORMONE 13.74 uIU/mL (0.36-3.74); TOTAL PROTEIN, SERUM 6.3 g/dL (6.4-8.2); TRIGLYCERIDES 102 mg/dL (15-150); UREA NITROGEN, BLOOD 14 mg/dL (7-18)
[2023-02-25] MEDS: METOPROLOL TARTRATE 25 MG TABLET PO SCH (07:57)
[2023-02-25] MEDS: DIVALPROEX SODIUM 500 MG DR TABLET PO SCH ×2 (07:57→19:25)
[2023-02-25] MEDS: BENAZEPRIL HCL 10 MG TABLET PO SCH (07:57)
[2023-02-25] MEDS: ACETAMINOPHEN 325 MG TABLET PO PRN ×2 (07:57→16:59)
[2023-02-25 08:25] VITALS: BP 129/63
[2023-02-25] MEDS: LORazepam 2 MG TABLET PO PRN (08:25)
[2023-02-25] MEDS: MAG HYDROX/AL HYDROX/SIMETH ES 30 ML SUSPENSION UDCUP PO PRN (19:23)
[2023-02-25 20:00] VITALS: BP 147/76
[2023-02-25] MEDS: ATORVASTATIN CALCIUM 20 MG TABLET PO SCH (21:22)
[2023-02-25] MEDS: OLANZapine 7.5 MG TABLET PO SCH (21:22)
[2023-02-26] MEDS: GEMFIBROZIL 600 MG TABLET PO SCH ×2 (06:22→16:20)
[2023-02-26 08:06] VITALS: BP 135/85
[2023-02-26] MEDS: DIVALPROEX SODIUM 500 MG DR TABLET PO SCH ×2 (08:30→16:20)
[2023-02-26] MEDS: BENAZEPRIL HCL 10 MG TABLET PO SCH (08:30)
[2023-02-26] MEDS: METOPROLOL TARTRATE 25 MG TABLET PO SCH (08:30)
[2023-02-26] MEDS: LORazepam 2 MG TABLET PO PRN ×2 (13:52→20:22)
[2023-02-26] MEDS: HALOPERIDOL 5 MG TABLET PO PRN (13:52)
[2023-02-26] MEDS: MAG HYDROX/AL HYDROX/SIMETH ES 30 ML SUSPENSION UDCUP PO PRN (14:34)
[2023-02-26] MEDS: OLANZapine 7.5 MG TABLET PO SCH (20:21)
[2023-02-26] MEDS: ATORVASTATIN CALCIUM 20 MG TABLET PO SCH (20:21)
[2023-02-26 21:10] VITALS: BP 138/80
[2023-02-27] MEDS: GEMFIBROZIL 600 MG TABLET PO SCH ×2 (06:14→16:45)
[2023-02-27] MEDS: BENAZEPRIL HCL 10 MG TABLET PO SCH (08:41)
[2023-02-27] MEDS: DIVALPROEX SODIUM 500 MG DR TABLET PO SCH ×2 (08:41→16:45)
[2023-02-27] MEDS: METOPROLOL TARTRATE 25 MG TABLET PO SCH (08:41)
[2023-02-27 09:33] VITALS: BP 148/83
[2023-02-27] MEDS: MAG HYDROX/AL HYDROX/SIMETH ES 30 ML SUSPENSION UDCUP PO PRN (10:45)
[2023-02-27] MEDS: LORazepam 2 MG TABLET PO PRN (16:45)
[2023-02-27] MEDS: ATORVASTATIN CALCIUM 20 MG TABLET PO SCH (20:05)
[2023-02-27] MEDS: OLANZapine 7.5 MG TABLET PO SCH (20:06)
[2023-02-28] MEDS: GEMFIBROZIL 600 MG TABLET PO SCH ×2 (06:30→16:07)
[2023-02-28] MEDS: METOPROLOL TARTRATE 25 MG TABLET PO SCH (08:11)
[2023-02-28] MEDS: DIVALPROEX SODIUM 500 MG DR TABLET PO SCH ×2 (08:11→16:05)
[2023-02-28] MEDS: BENAZEPRIL HCL 10 MG TABLET PO SCH (08:14)
[2023-02-28] MEDS: LORazepam 2 MG TABLET PO PRN (08:41)
[2023-02-28] MEDS: MAG HYDROX/AL HYDROX/SIMETH ES 30 ML SUSPENSION UDCUP PO PRN (09:40)
[2023-02-28 10:00] VITALS: BP 144/88
[2023-02-28] MEDS: ATORVASTATIN CALCIUM 20 MG TABLET PO SCH (20:25)
[2023-02-28] MEDS: OLANZapine 7.5 MG TABLET PO SCH (20:25)
[2023-03-01] MEDS: GEMFIBROZIL 600 MG TABLET PO SCH ×2 (06:28→17:27)
[2023-03-01 08:13] VITALS: BP 158/83
[2023-03-01] MEDS: METOPROLOL TARTRATE 25 MG TABLET PO SCH (08:40)
[2023-03-01] MEDS: DIVALPROEX SODIUM 500 MG DR TABLET PO SCH ×2 (08:40→17:27)
[2023-03-01] MEDS: BENAZEPRIL HCL 10 MG TABLET PO SCH (08:40)
[2023-03-01] MEDS: MAG HYDROX/AL HYDROX/SIMETH ES 30 ML SUSPENSION UDCUP PO PRN ×2 (11:00→22:59)
[2023-03-01] MEDS: OLANZapine 7.5 MG TABLET PO SCH (20:14)
[2023-03-01] MEDS: ATORVASTATIN CALCIUM 20 MG TABLET PO SCH (20:14)
[2023-03-01 20:20] VITALS: BP 173/83
[2023-03-01 22:09] VITALS: BP 145/74
[2023-03-02] MEDS: ZOLPIDEM TARTRATE 10 MG TABLET PO PRN (02:13)
[2023-03-02] MEDS: GEMFIBROZIL 600 MG TABLET PO SCH ×2 (06:20→16:24)
[2023-03-02 08:15] VITALS: BP 123/72
[2023-03-02] MEDS: DIVALPROEX SODIUM 500 MG DR TABLET PO SCH ×2 (09:33→16:24)
[2023-03-02] MEDS: METOPROLOL TARTRATE 25 MG TABLET PO SCH (09:33)
[2023-03-02] MEDS: BENAZEPRIL HCL 10 MG TABLET PO SCH (09:33)
[2023-03-02] MEDS: LORazepam 2 MG TABLET PO PRN (11:17)
[2023-03-02 16:46] LABS: GLUCOMETER DEV NAME(LOC) POC.BV
[2023-03-02 20:05] VITALS: BP 119/67
[2023-03-02] MEDS: ATORVASTATIN CALCIUM 20 MG TABLET PO SCH (20:08)
[2023-03-02] MEDS: OLANZapine 7.5 MG TABLET PO SCH (20:08)
[2023-03-02] MEDS: MAG HYDROX/AL HYDROX/SIMETH ES 30 ML SUSPENSION UDCUP PO PRN (20:42)
[2023-03-03] MEDS: ZOLPIDEM TARTRATE 10 MG TABLET PO PRN ×2 (00:21→22:12)
[2023-03-03] MEDS: GEMFIBROZIL 600 MG TABLET PO SCH ×2 (06:31→16:30)
[2023-03-03 08:15] VITALS: BP 113/67
[2023-03-03] MEDS: METOPROLOL TARTRATE 25 MG TABLET PO SCH (09:03)
[2023-03-03] MEDS: BENAZEPRIL HCL 10 MG TABLET PO SCH (09:03)
[2023-03-03] MEDS: DIVALPROEX SODIUM 500 MG DR TABLET PO SCH ×2 (09:04→17:00)
[2023-03-03] MEDS: MAG HYDROX/AL HYDROX/SIMETH ES 30 ML SUSPENSION UDCUP PO PRN (17:21)
[2023-03-03 20:18] VITALS: BP 117/55
[2023-03-03] MEDS: OLANZapine 7.5 MG TABLET PO SCH (20:44)
[2023-03-03] MEDS: ATORVASTATIN CALCIUM 20 MG TABLET PO SCH (20:44)
[2023-03-04] MEDS: GEMFIBROZIL 600 MG TABLET PO SCH ×2 (06:03→16:51)
[2023-03-04] MEDS: DIVALPROEX SODIUM 500 MG DR TABLET PO SCH ×2 (08:31→16:50)
[2023-03-04] MEDS: BENAZEPRIL HCL 10 MG TABLET PO SCH (08:31)
[2023-03-04] MEDS: HALOPERIDOL 5 MG TABLET PO PRN (08:31)
[2023-03-04] MEDS: METOPROLOL TARTRATE 25 MG TABLET PO SCH (08:31)
[2023-03-04] MEDS: LORazepam 2 MG TABLET PO PRN ×2 (08:31→16:51)
[2023-03-04 09:26] VITALS: BP 150/77
[2023-03-04 17:51] LABS: GLUCOMETER DEV NAME(LOC) POC.BV
[2023-03-04] MEDS: ATORVASTATIN CALCIUM 20 MG TABLET PO SCH (21:00)
[2023-03-04] MEDS: OLANZapine 7.5 MG TABLET PO SCH (21:00)
[2023-03-04 23:56] LABS: GLUCOMETER DEV NAME(LOC) POC.BV
[2023-03-05] MEDS: GEMFIBROZIL 600 MG TABLET PO SCH ×2 (06:27→16:18)
[2023-03-05 08:13] VITALS: BP 146/76
[2023-03-05] MEDS: BENAZEPRIL HCL 10 MG TABLET PO SCH (08:35)
[2023-03-05] MEDS: DIVALPROEX SODIUM 500 MG DR TABLET PO SCH ×2 (08:35→16:18)
[2023-03-05] MEDS: METOPROLOL TARTRATE 25 MG TABLET PO SCH (08:35)
[2023-03-05] MEDS ORDERED: LORazepam 2 MG/ML VIAL ONE (14:57)
[2023-03-05] MEDS ORDERED: DiphenhydrAMINE HCL 50 MG/ML VIAL ONE (14:58)
[2023-03-05] MEDS ORDERED: HALOPERIDOL LACTATE 5 MG/ML VIAL ONE (14:58)
[2023-03-05] MEDS ORDERED: HALOPERIDOL LACTATE 5 MG/ML VIAL IM ONE (15:00)
[2023-03-05] MEDS ORDERED: DiphenhydrAMINE HCL 50 MG/ML VIAL IM ONE (15:00)
[2023-03-05] MEDS ORDERED: LORazepam 2 MG/ML VIAL IM ONE (15:00)
[2023-03-05] MEDS: LORazepam 2 MG TABLET PO PRN (16:18)
[2023-03-05 20:00] VITALS: BP 133/66
[2023-03-05] MEDS: OLANZapine 7.5 MG TABLET PO SCH (21:00)
[2023-03-05] MEDS: ATORVASTATIN CALCIUM 20 MG TABLET PO SCH (21:00)
[2023-03-06] MEDS: GEMFIBROZIL 600 MG TABLET PO SCH ×2 (06:24→16:49)
[2023-03-06 08:30] VITALS: BP 147/72
[2023-03-06] MEDS: DIVALPROEX SODIUM 500 MG DR TABLET PO SCH ×2 (08:47→16:49)
[2023-03-06] MEDS: METOPROLOL TARTRATE 25 MG TABLET PO SCH (08:47)
[2023-03-06] MEDS: BENAZEPRIL HCL 10 MG TABLET PO SCH (08:48)
[2023-03-06] MEDS: HALOPERIDOL 5 MG TABLET PO PRN (08:49)
[2023-03-06] MEDS: LORazepam 2 MG TABLET PO PRN ×2 (08:49→16:49)
[2023-03-06] MEDS: MAG HYDROX/AL HYDROX/SIMETH ES 30 ML SUSPENSION UDCUP PO PRN (11:20)
[2023-03-06] MEDS: ATORVASTATIN CALCIUM 20 MG TABLET PO SCH (20:22)
[2023-03-06] MEDS: OLANZapine 7.5 MG TABLET PO SCH (20:22)
[2023-03-07] MEDS: GEMFIBROZIL 600 MG TABLET PO SCH ×2 (06:24→16:27)
[2023-03-07 08:29] VITALS: BP 132/77
[2023-03-07] MEDS: METOPROLOL TARTRATE 25 MG TABLET PO SCH (08:35)
[2023-03-07] MEDS: BENAZEPRIL HCL 10 MG TABLET PO SCH (08:35)
[2023-03-07] MEDS: DIVALPROEX SODIUM 500 MG DR TABLET PO SCH ×2 (08:35→16:27)
[2023-03-07] MEDS: LORazepam 2 MG TABLET PO PRN ×2 (08:55→16:27)
[2023-03-07 20:00] VITALS: BP 133/70
[2023-03-07] MEDS: OLANZapine 7.5 MG TABLET PO SCH (20:04)
[2023-03-07] MEDS: ATORVASTATIN CALCIUM 20 MG TABLET PO SCH (20:04)
[2023-03-08] MEDS: GEMFIBROZIL 600 MG TABLET PO SCH ×2 (06:36→16:53)
[2023-03-08] MEDS: BENAZEPRIL HCL 10 MG TABLET PO SCH (08:04)
[2023-03-08] MEDS: METOPROLOL TARTRATE 25 MG TABLET PO SCH (08:04)
[2023-03-08] MEDS: DIVALPROEX SODIUM 500 MG DR TABLET PO SCH ×2 (08:04→16:53)
[2023-03-08 08:12] VITALS: BP 115/68
[2023-03-08] MEDS: LORazepam 2 MG TABLET PO PRN (09:33)
[2023-03-08 20:03] VITALS: BP 126/76
[2023-03-08] MEDS: ATORVASTATIN CALCIUM 20 MG TABLET PO SCH (20:21)
[2023-03-08] MEDS: OLANZapine 7.5 MG TABLET PO SCH (20:22)
[2023-03-09] MEDS: LORazepam 2 MG TABLET PO PRN ×2 (03:13→08:13)
[2023-03-09] MEDS: HALOPERIDOL 5 MG TABLET PO PRN (03:13)
[2023-03-09] MEDS: GEMFIBROZIL 600 MG TABLET PO SCH (06:31)
[2023-03-09] MEDS: DIVALPROEX SODIUM 500 MG DR TABLET PO SCH (08:12)
[2023-03-09] MEDS: BENAZEPRIL HCL 10 MG TABLET PO SCH (08:12)
[2023-03-09] MEDS: METOPROLOL TARTRATE 25 MG TABLET PO SCH (08:12)
[2023-03-09 08:33] VITALS: BP 127/75
[2023-03-09] MEDS ORDERED: ATOR20TA86 PO (10:10)
[2023-03-09] MEDS ORDERED: GEMF600T89 PO (10:10)
[2023-03-09] MEDS ORDERED: METO25 PO (10:10)
[2023-03-09] MEDS ORDERED: BENA10TA77 PO (10:10)
[2023-03-09] MEDS ORDERED: DIVA-112 PO (13:06)
[2023-03-09] MEDS ORDERED: OLAN7.5T22 PO (13:06)
== END 2023-03-09 13:30 | disposition home or self-care (01) | DRG 750 ==
LOC: B3A 09:38
PROVIDERS: ADMIT Psychiatry & Neurology Child & Adolescent Psychiatry; ATTEND Psychiatry & Neurology Child & Adolescent Psychiatry
DX: F25.1 Schizoaffective disorder, depressive type (principal); E03.9 Hypothyroidism, unspecified; E78.5 Hyperlipidemia, unspecified; I10 Essential (primary) hypertension; K21.9 Gastro-esophageal reflux disease without esophagitis; Z20.822 Contact with and (suspected) exposure to COVID-19; Z28.82 Immunization not carried out because of caregiver refusal
CPT/HCPCS: 80053; 80061; 83036; 84436; 84439; 84443; 84702; 85025; 86592; 87081; G0480; J1200; J1630; J2060

== ENCOUNTER 2023-04-24 08:30 | Inpatient (IN) | payer MEDICAID, OTHER ==
[~2023-04-24] VITALS: Ht 157.5 cm; Wt 66.2 kg
[~2023-04-24 08:30] MED LIST changes: +ATOR20TA PO; -ATOR20TA86 PO; +OLAN7.5T22 PO; -SERT-158 PO
[2023-04-24 11:26] LABS: ANION GAP 14 mmol/L (8-16); CALCIUM, TOTAL 10.2 mg/dL (8.8-10.5); CARBON DIOXIDE 21 mmol/L (22-29); CHLORIDE 105 mmol/L (98-107); CREATININE 0.93 mg/dL (0.60-1.30); GLOMERULAR FILTR. RATE CALC > 60 mL/min (>60); GLUCOSE,RANDOM 104 mg/dL (70-110); POTASSIUM 4.4 mmol/L (3.5-5.1); SODIUM SERUM 140 mmol/L (136-145)
[2023-04-24 11:26] LABS: GLUCOSE,POINT OF CARE 98 MG/DL (70-110)
[2023-04-24 11:28] LABS: EOSINOPHILS % (AUTO) 3.7 % (1.0-6.0); HEMATOCRIT 41.6 % (36-46); HEMOGLOBIN 13.6 g/dL (12.0-16.0); MEAN CORPUSCULAR HEMOGLOBIN 30.3 pg (26.0-34.0); MEAN CORPUSCULAR HGB CONC 32.6 G/dL (31.0-37.0); MEAN CORPUSCULAR VOLUME 93 fL (80-100); MONOCYTES # (AUTO) 0.3 K/uL (0.1-1.0); MONOCYTES % (AUTO) 6.1 % (2.0-9.0); NEUTROPHILS # (AUTO) 1.7 K/uL (1.8-7.7); NEUTROPHILS % (AUTO) 33.2 % (40.0-70.0); RED BLOOD CELL COUNT(AUTO) 4.47 MIL/uL (4.00-5.20); RED CELL DISTRIBUTION WIDTH 13.4 % (11.5-14.5)
[2023-04-24 11:32] LABS: ALANINE AMINOTRANSFERASE 19 U/L (12-78); ALBUMIN 3.3 g/dL (3.4-5.0); ALKALINE PHOSPHATASE 83 U/L (46-116); ASPARTATE AMINOTRANSFERASE 27 U/L (15-37); BILIRUBIN,TOTAL 0.3 mg/dL (0.1-1.0); TOTAL PROTEIN, SERUM 7.4 g/dL (6.4-8.2)
[2023-04-24 11:50] LABS: PLATELET COUNT (AUTO) 115 K/uL (150-450)
[2023-04-24] MEDS ORDERED: ZOLPIDEM TARTRATE 10 MG TABLET PO PRN (12:30)
[2023-04-24] MEDS ORDERED: DIVA-112 PO (12:45)
[2023-04-24] MEDS ORDERED: TRAZ150T80 PO (12:45)
[2023-04-24 14:43] LABS: COVID AG,FIA SOURCE NASAL SWAB
[2023-04-24 21:28] VITALS: BP 128/76
[2023-04-25 08:25] VITALS: BP 130/71
[2023-04-25] MEDS ORDERED: ALBUTEROL SULFATE HFA 90 MCG/PUFF 8 GM INHALER IH PRN (08:45)
[2023-04-25] MEDS ORDERED: IBUPROFEN 400 MG TABLET PO PRN (08:45)
[2023-04-25] MEDS ORDERED: DOCUSATE SODIUM 100 MG CAPSULE PO PRN (08:45)
[2023-04-25] MEDS ORDERED: GuaiFENesin/D-METHORPHAN [SUGAR-FREE] 200-20MG/10 ML SYRUP UDCUP PO PRN (08:45)
[2023-04-25] MEDS ORDERED: MAGNESIUM HYDROXIDE SUSPENSION 30 ML UDCUP PO PRN (08:45)
[2023-04-25] MEDS ORDERED: NICOTINE 14 MG/24 HOUR PATCH TD PRN (08:45)
[2023-04-25] MEDS ORDERED: LOPERAMIDE HCL 2 MG CAPSULE PO PRN (08:45)
[2023-04-25] MEDS ORDERED: PETROLATUM,WHITE 28 GM JELLY TP PRN (08:45)
[2023-04-25] MEDS ORDERED: CloNIDine HCL 0.1 MG TABLET PO PRN (08:45)
[2023-04-25] MEDS ORDERED: ONDANSETRON HCL 4 MG TABLET PO PRN (08:45)
[2023-04-25] MEDS ORDERED: MAG HYDROX/AL HYDROX/SIMETH ES 30 ML SUSPENSION UDCUP PO PRN (08:45)
[2023-04-25] MEDS ORDERED: ACETAMINOPHEN 325 MG TABLET PO PRN (08:45)
[2023-04-25] MEDS: METOPROLOL TARTRATE 25 MG TABLET PO SCH (08:56)
[2023-04-25] MEDS ORDERED: DIVALPROEX SODIUM 500 MG DR TABLET PO SCH (10:15)
[2023-04-25] MEDS: BENAZEPRIL HCL 10 MG TABLET PO SCH (17:19)
[2023-04-25] MEDS: OLANZapine 7.5 MG TABLET PO SCH (20:30)
[2023-04-25] MEDS: DIVALPROEX SODIUM 250 MG DR TABLET PO SCH (20:30)
[2023-04-25] MEDS: ATORVASTATIN CALCIUM 20 MG TABLET PO SCH (20:30)
[2023-04-25 20:37] VITALS: BP 146/73
[2023-04-26 08:11] VITALS: BP 138/85
[2023-04-26] MEDS: DIVALPROEX SODIUM 250 MG DR TABLET PO SCH ×2 (09:02→20:16)
[2023-04-26] MEDS: BENAZEPRIL HCL 10 MG TABLET PO SCH (09:02)
[2023-04-26] MEDS: METOPROLOL TARTRATE 25 MG TABLET PO SCH (09:02)
[2023-04-26] MEDS: LORazepam 2 MG TABLET PO PRN (09:02)
[2023-04-26] MEDS: QUEtiapine FUMARATE 100 MG TABLET PO PRN (09:02)
[2023-04-26 20:05] VITALS: BP 106/63
[2023-04-26] MEDS: OLANZapine 7.5 MG TABLET PO SCH (20:16)
[2023-04-26] MEDS: ATORVASTATIN CALCIUM 20 MG TABLET PO SCH (20:17)
[2023-04-27] MEDS: DIVALPROEX SODIUM 250 MG DR TABLET PO SCH ×2 (08:19→21:03)
[2023-04-27] MEDS: METOPROLOL TARTRATE 25 MG TABLET PO SCH (08:19)
[2023-04-27] MEDS: BENAZEPRIL HCL 10 MG TABLET PO SCH (08:20)
[2023-04-27 08:23] VITALS: BP 126/83
[2023-04-27] MEDS: ATORVASTATIN CALCIUM 20 MG TABLET PO SCH (21:04)
[2023-04-27] MEDS: OLANZapine 7.5 MG TABLET PO SCH (21:04)
[2023-04-28 05:13] VITALS: BP 118/68
[2023-04-28] MEDS: METOPROLOL TARTRATE 25 MG TABLET PO SCH (08:12)
[2023-04-28] MEDS: DIVALPROEX SODIUM 250 MG DR TABLET PO SCH ×2 (08:12→20:14)
[2023-04-28] MEDS: BENAZEPRIL HCL 10 MG TABLET PO SCH (08:12)
[2023-04-28 08:13] VITALS: BP 118/82
[2023-04-28 20:05] VITALS: BP 130/69
[2023-04-28] MEDS: OLANZapine 7.5 MG TABLET PO SCH (20:13)
[2023-04-28] MEDS: ATORVASTATIN CALCIUM 20 MG TABLET PO SCH (20:14)
[2023-04-29] MEDS: DIVALPROEX SODIUM 250 MG DR TABLET PO SCH ×2 (08:08→20:18)
[2023-04-29] MEDS: BENAZEPRIL HCL 10 MG TABLET PO SCH (08:08)
[2023-04-29] MEDS: METOPROLOL TARTRATE 25 MG TABLET PO SCH (08:08)
[2023-04-29 08:18] VITALS: BP 140/92
[2023-04-29 20:00] VITALS: BP 111/66
[2023-04-29] MEDS: OLANZapine 7.5 MG TABLET PO SCH (20:18)
[2023-04-29] MEDS: ATORVASTATIN CALCIUM 20 MG TABLET PO SCH (20:18)
[2023-04-30] MEDS: DIVALPROEX SODIUM 250 MG DR TABLET PO SCH ×2 (08:12→20:34)
[2023-04-30] MEDS: METOPROLOL TARTRATE 25 MG TABLET PO SCH (08:12)
[2023-04-30] MEDS: BENAZEPRIL HCL 10 MG TABLET PO SCH (08:12)
[2023-04-30 08:25] VITALS: BP 154/102
[2023-04-30 20:33] VITALS: BP 126/66
[2023-04-30] MEDS: ATORVASTATIN CALCIUM 20 MG TABLET PO SCH (20:34)
[2023-04-30] MEDS: OLANZapine 7.5 MG TABLET PO SCH (20:34)
[2023-05-01] MEDS: METOPROLOL TARTRATE 25 MG TABLET PO SCH (09:00)
[2023-05-01] MEDS: BENAZEPRIL HCL 10 MG TABLET PO SCH (09:00)
[2023-05-01] MEDS: DIVALPROEX SODIUM 250 MG DR TABLET PO SCH ×2 (09:00→20:56)
[2023-05-01] MEDS: ATORVASTATIN CALCIUM 20 MG TABLET PO SCH (20:57)
[2023-05-01] MEDS: OLANZapine 7.5 MG TABLET PO SCH (20:57)
[2023-05-01 23:59] VITALS: BP 132/73
[2023-05-02] MEDS: METOPROLOL TARTRATE 25 MG TABLET PO SCH (09:00)
[2023-05-02] MEDS: DIVALPROEX SODIUM 250 MG DR TABLET PO SCH ×2 (09:00→20:24)
[2023-05-02] MEDS: BENAZEPRIL HCL 10 MG TABLET PO SCH (09:00)
[2023-05-02 20:03] VITALS: BP 152/93
[2023-05-02] MEDS: ATORVASTATIN CALCIUM 20 MG TABLET PO SCH (20:23)
[2023-05-02] MEDS: OLANZapine 7.5 MG TABLET PO SCH (20:24)
[2023-05-03] MEDS: DIVALPROEX SODIUM 250 MG DR TABLET PO SCH ×2 (08:05→20:37)
[2023-05-03] MEDS: METOPROLOL TARTRATE 25 MG TABLET PO SCH (08:05)
[2023-05-03] MEDS: BENAZEPRIL HCL 10 MG TABLET PO SCH (08:06)
[2023-05-03] MEDS: OLANZapine 7.5 MG TABLET PO SCH (20:37)
[2023-05-03] MEDS: ATORVASTATIN CALCIUM 20 MG TABLET PO SCH (20:37)
[2023-05-04] MEDS: DIVALPROEX SODIUM 250 MG DR TABLET PO SCH ×2 (09:00→20:41)
[2023-05-04] MEDS: BENAZEPRIL HCL 10 MG TABLET PO SCH (09:00)
[2023-05-04] MEDS: METOPROLOL TARTRATE 25 MG TABLET PO SCH (09:00)
[2023-05-04] MEDS: ATORVASTATIN CALCIUM 20 MG TABLET PO SCH (20:41)
[2023-05-04] MEDS: OLANZapine 7.5 MG TABLET PO SCH (20:42)
[2023-05-05] MEDS: DIVALPROEX SODIUM 250 MG DR TABLET PO SCH ×2 (09:00→20:46)
[2023-05-05] MEDS: BENAZEPRIL HCL 10 MG TABLET PO SCH (09:00)
[2023-05-05] MEDS: METOPROLOL TARTRATE 25 MG TABLET PO SCH (09:00)
[2023-05-05] MEDS: ATORVASTATIN CALCIUM 20 MG TABLET PO SCH (20:46)
[2023-05-05] MEDS: OLANZapine 7.5 MG TABLET PO SCH (20:46)
[2023-05-06] MEDS: METOPROLOL TARTRATE 25 MG TABLET PO SCH ×2 (08:22→09:00)
[2023-05-06] MEDS: DIVALPROEX SODIUM 250 MG DR TABLET PO SCH ×3 (08:22→20:26)
[2023-05-06 08:24] VITALS: BP_SYST 115; BP_SYST 151; BP_DIAS 93
[2023-05-06] MEDS: BENAZEPRIL HCL 10 MG TABLET PO SCH ×2 (08:47→09:00)
[2023-05-06] MEDS: ATORVASTATIN CALCIUM 20 MG TABLET PO SCH (20:26)
[2023-05-06] MEDS: OLANZapine 7.5 MG TABLET PO SCH (20:27)
[2023-05-07] MEDS: BENAZEPRIL HCL 10 MG TABLET PO SCH (08:24)
[2023-05-07] MEDS: METOPROLOL TARTRATE 25 MG TABLET PO SCH (08:24)
[2023-05-07] MEDS: DIVALPROEX SODIUM 250 MG DR TABLET PO SCH ×2 (08:24→21:01)
[2023-05-07 09:24] VITALS: BP 145/76
[2023-05-07] MEDS: LORazepam 2 MG TABLET PO PRN (12:58)
[2023-05-07] MEDS: QUEtiapine FUMARATE 100 MG TABLET PO PRN (12:58)
[2023-05-07] MEDS: ATORVASTATIN CALCIUM 20 MG TABLET PO SCH (21:01)
[2023-05-07] MEDS: OLANZapine 7.5 MG TABLET PO SCH (21:01)
[2023-05-08] MEDS: QUEtiapine FUMARATE 100 MG TABLET PO PRN (04:30)
[2023-05-08] MEDS: BENAZEPRIL HCL 10 MG TABLET PO SCH (08:10)
[2023-05-08] MEDS: METOPROLOL TARTRATE 25 MG TABLET PO SCH (08:10)
[2023-05-08] MEDS: DIVALPROEX SODIUM 250 MG DR TABLET PO SCH ×2 (08:10→20:36)
[2023-05-08 08:19] VITALS: BP 126/73
[2023-05-08] MEDS: OLANZapine 7.5 MG TABLET PO SCH (20:36)
[2023-05-08] MEDS: ATORVASTATIN CALCIUM 20 MG TABLET PO SCH (20:36)
[2023-05-09] MEDS: DIVALPROEX SODIUM 250 MG DR TABLET PO SCH ×2 (08:08→20:20)
[2023-05-09] MEDS: METOPROLOL TARTRATE 25 MG TABLET PO SCH (08:08)
[2023-05-09] MEDS: BENAZEPRIL HCL 10 MG TABLET PO SCH (08:08)
[2023-05-09] MEDS: ATORVASTATIN CALCIUM 20 MG TABLET PO SCH (20:19)
[2023-05-09] MEDS: LORazepam 2 MG TABLET PO PRN (20:20)
[2023-05-09] MEDS: OLANZapine 7.5 MG TABLET PO SCH (20:20)
[2023-05-10] MEDS: DIVALPROEX SODIUM 250 MG DR TABLET PO SCH ×2 (08:25→20:10)
[2023-05-10] MEDS: METOPROLOL TARTRATE 25 MG TABLET PO SCH (08:26)
[2023-05-10] MEDS: BENAZEPRIL HCL 10 MG TABLET PO SCH (08:26)
[2023-05-10] MEDS: OLANZapine 7.5 MG TABLET PO SCH (20:10)
[2023-05-10] MEDS: ATORVASTATIN CALCIUM 20 MG TABLET PO SCH (20:10)
[2023-05-11] MEDS: DIVALPROEX SODIUM 250 MG DR TABLET PO SCH (08:03)
[2023-05-11] MEDS: METOPROLOL TARTRATE 25 MG TABLET PO SCH (08:03)
[2023-05-11] MEDS: BENAZEPRIL HCL 10 MG TABLET PO SCH (08:22)
[2023-05-11] MEDS ORDERED: BENA10TA76 PO (11:56)
[2023-05-11] MEDS ORDERED: ATOR20TA65 PO (11:56)
[2023-05-11] MEDS ORDERED: METO25 PO (11:56)
[2023-05-11] MEDS ORDERED: DIVA-111 PO (11:56)
[2023-05-11] MEDS ORDERED: OLAN7.5T22 PO (11:56)
== END 2023-05-11 16:15 | disposition home or self-care (01) | DRG 750 ==
LOC: EMS 08:30 → B3A 17:44
PROVIDERS: ADMIT Psychiatry & Neurology Psychiatry; ATTEND Psychiatry & Neurology Psychiatry
DX: F20.0 Paranoid schizophrenia (principal); E11.9 Type 2 diabetes mellitus without complications; E03.9 Hypothyroidism, unspecified; Z20.822 Contact with and (suspected) exposure to COVID-19; E78.00 Pure hypercholesterolemia, unspecified; G47.00 Insomnia, unspecified; I10 Essential (primary) hypertension; Z79.899 Other long term (current) drug therapy; Z87.891 Personal history of nicotine dependence; Z59.00 Homelessness unspecified
CPT/HCPCS: 80053; 80164; 82962; 85025; 99285; G0480

== ENCOUNTER 2023-05-11 17:27 | Inpatient (IN) | payer MEDICAID, OTHER ==
[~2023-05-11] VITALS: Ht 165.1 cm; Wt 78.9 kg
[~2023-05-11 17:27] MED LIST changes: +ATOR20TA65 PO; +BENA-16 PO; +BENA10TA76 PO; -BENA10TA77 PO; +DIVA-111 PO; -OLAN15TA36 PO; +TRAZ150T80 PO
[2023-05-11] MEDS ORDERED: HALOPERIDOL LACTATE 5 MG/ML VIAL IM ONE (19:45)
[2023-05-11] MEDS ORDERED: DiphenhydrAMINE HCL 50 MG/ML VIAL IM ONE (19:45)
[2023-05-11] MEDS ORDERED: LORazepam 2 MG/ML VIAL IM ONE (19:45)
[2023-05-11] MEDS ORDERED: HALOPERIDOL 5 MG TABLET PO PRN (22:15)
[2023-05-11 23:23] LABS: COVID AG,FIA SOURCE NASAL SWAB
[2023-05-11] MEDS ORDERED: MIDAZOLAM HCL 5 MG/ML VIAL IM ONE (23:30)
[2023-05-11 23:41] LABS: SARS-COV2 (COVID) ANTIGEN,FIA Negative (Negative)
[2023-05-12 01:40] VITALS: BP 142/69; PULSE 102; RESP 20; TEMP 97.6; O2SAT 96
[2023-05-12] MEDS ORDERED: PNEUMOCOCCAL VACCINE POLYVALENT 0.5 ML VIAL [PPSV23] IM. ONE (04:45)
[2023-05-12 08:41] VITALS: RESP 16
[2023-05-12] MEDS: METOPROLOL TARTRATE 25 MG TABLET PO SCH (09:00)
[2023-05-12 09:16] LABS: BASOPHILS % (AUTO) 0.5 % (0.0-2.0); EOSINOPHILS % (AUTO) 2.2 % (1.0-6.0); HEMATOCRIT 35.7 % (36-46); HEMOGLOBIN 11.9 g/dL (12.0-16.0); LYMPHOCYTES # (AUTO) 2.6 K/uL (1.0-4.8); LYMPHOCYTES % (AUTO) 47.5 % (22.0-44.0); MEAN CORPUSCULAR HGB CONC 33.2 G/dL (31.0-37.0); MEAN CORPUSCULAR VOLUME 93 fL (80-100); MONOCYTES # (AUTO) 0.5 K/uL (0.1-1.0); MONOCYTES % (AUTO) 8.4 % (2.0-9.0); NEUTROPHILS # (AUTO) 2.2 K/uL (1.8-7.7); NEUTROPHILS % (AUTO) 41.4 % (40.0-70.0); PLATELET COUNT (AUTO) 135 K/uL (150-450); RED BLOOD CELL COUNT(AUTO) 3.83 MIL/uL (4.00-5.20); RED CELL DISTRIBUTION WIDTH 14.7 % (11.5-14.5); WHITE BLOOD COUNT (AUTO) 5.4 K/uL (4.5-11.0)
[2023-05-12 09:28] LABS: ANION GAP 4 mmol/L (8-16); CALCIUM, TOTAL 9.6 mg/dL (8.8-10.5); CARBON DIOXIDE 27 mmol/L (22-29); CHLORIDE 109 mmol/L (98-107); CREATININE 0.64 mg/dL (0.60-1.30); GLOMERULAR FILTR. RATE CALC > 60 mL/min (>60); GLUCOSE,RANDOM 92 mg/dL (70-110); POTASSIUM 3.8 mmol/L (3.5-5.1); SODIUM SERUM 140 mmol/L (136-145); UREA NITROGEN, BLOOD 14 mg/dL (7-18)
[2023-05-12 09:34] LABS: ALANINE AMINOTRANSFERASE 24 U/L (12-78); ALBUMIN 2.8 g/dL (3.4-5.0); ALKALINE PHOSPHATASE 80 U/L (46-116); ASPARTATE AMINOTRANSFERASE 54 U/L (15-37); BILIRUBIN,TOTAL 0.4 mg/dL (0.1-1.0); TOTAL PROTEIN, SERUM 6.2 g/dL (6.4-8.2); VALPROIC ACID 34 mcg/mL (50-100)
[2023-05-12 09:37] LABS: ALCOHOL, BLOOD (SERUM) < 3 mg/dL (0-10)
[2023-05-12] MEDS ORDERED: LOPERAMIDE HCL 2 MG CAPSULE PO PRN (10:00)
[2023-05-12] MEDS ORDERED: DOCUSATE SODIUM 100 MG CAPSULE PO PRN (10:00)
[2023-05-12] MEDS ORDERED: MAGNESIUM HYDROXIDE SUSPENSION 30 ML UDCUP PO PRN (10:00)
[2023-05-12] MEDS ORDERED: IBUPROFEN 400 MG TABLET PO PRN (10:00)
[2023-05-12] MEDS ORDERED: NICOTINE 14 MG/24 HOUR PATCH TD PRN (10:00)
[2023-05-12] MEDS ORDERED: ALBUTEROL SULFATE HFA 90 MCG/PUFF 8 GM INHALER IH PRN (10:00)
[2023-05-12] MEDS ORDERED: ONDANSETRON HCL 4 MG TABLET PO PRN (10:00)
[2023-05-12] MEDS ORDERED: GuaiFENesin/D-METHORPHAN [SUGAR-FREE] 200-20MG/10 ML SYRUP UDCUP PO PRN (10:00)
[2023-05-12] MEDS ORDERED: CloNIDine HCL 0.1 MG TABLET PO PRN (10:00)
[2023-05-12] MEDS ORDERED: PETROLATUM,WHITE 28 GM JELLY TP PRN (10:00)
[2023-05-12] MEDS ORDERED: ACETAMINOPHEN 325 MG TABLET PO PRN (10:00)
[2023-05-12] MEDS: BENAZEPRIL HCL 10 MG TABLET PO SCH (12:00)
[2023-05-12 20:03] VITALS: RESP 17
[2023-05-12] MEDS: ATORVASTATIN CALCIUM 20 MG TABLET PO SCH (20:15)
[2023-05-12] MEDS: OLANZapine 10 MG TABLET PO SCH (20:15)
[2023-05-12] MEDS: DIVALPROEX SODIUM 250 MG DR TABLET PO SCH (20:15)
[2023-05-13 08:22] VITALS: RESP 17
[2023-05-13] MEDS: DIVALPROEX SODIUM 250 MG DR TABLET PO SCH ×2 (09:00→20:12)
[2023-05-13] MEDS: BENAZEPRIL HCL 10 MG TABLET PO SCH (09:00)
[2023-05-13] MEDS: METOPROLOL TARTRATE 25 MG TABLET PO SCH (09:00)
[2023-05-13] MEDS ORDERED: HALOPERIDOL LACTATE 5 MG/ML VIAL IM ONE (15:15)
[2023-05-13] MEDS ORDERED: LORazepam 2 MG/ML VIAL IM ONE (15:15)
[2023-05-13] MEDS ORDERED: LORazepam 2 MG/ML VIAL ONE (15:15)
[2023-05-13] MEDS ORDERED: DiphenhydrAMINE HCL 50 MG/ML VIAL IM ONE (15:15)
[2023-05-13] MEDS ORDERED: DiphenhydrAMINE HCL 50 MG/ML VIAL ONE (15:16)
[2023-05-13] MEDS ORDERED: HALOPERIDOL LACTATE 5 MG/ML VIAL ONE (15:16)
[2023-05-13 20:00] VITALS: BP 159/80; PULSE 107; RESP 18; TEMP 97.8; O2SAT 98
[2023-05-13] MEDS: OLANZapine 10 MG TABLET PO SCH (20:12)
[2023-05-13] MEDS: ATORVASTATIN CALCIUM 20 MG TABLET PO SCH (21:47)
[2023-05-13] MEDS: LORazepam 2 MG TABLET PO PRN (21:47)
[2023-05-14] MEDS: LORazepam 2 MG TABLET PO PRN (02:57)
[2023-05-14 08:14] VITALS: RESP 16
[2023-05-14] MEDS: METOPROLOL TARTRATE 25 MG TABLET PO SCH (09:00)
[2023-05-14] MEDS: DIVALPROEX SODIUM 250 MG DR TABLET PO SCH ×2 (09:00→21:04)
[2023-05-14] MEDS: BENAZEPRIL HCL 10 MG TABLET PO SCH (09:00)
[2023-05-14] MEDS ORDERED: LORazepam 2 MG/ML VIAL ONE (09:36)
[2023-05-14] MEDS ORDERED: DiphenhydrAMINE HCL 50 MG/ML VIAL ONE (09:36)
[2023-05-14] MEDS ORDERED: LORazepam 2 MG/ML VIAL IM ONE (09:45)
[2023-05-14] MEDS ORDERED: DiphenhydrAMINE HCL 50 MG/ML VIAL IM ONE (09:45)
[2023-05-14] MEDS ORDERED: HALOPERIDOL LACTATE 5 MG/ML VIAL IM ONE (09:45)
[2023-05-14] MEDS: OLANZapine 10 MG TABLET PO SCH (21:05)
[2023-05-14] MEDS: ATORVASTATIN CALCIUM 20 MG TABLET PO SCH (21:05)
[2023-05-15 06:35] VITALS: RESP 18
[2023-05-15] MEDS: DIVALPROEX SODIUM 250 MG DR TABLET PO SCH ×3 (08:19→21:00)
[2023-05-15] MEDS: BENAZEPRIL HCL 10 MG TABLET PO SCH ×2 (08:19→09:00)
[2023-05-15] MEDS: METOPROLOL TARTRATE 25 MG TABLET PO SCH ×2 (08:19→09:00)
[2023-05-15 09:00] VITALS: BP 132/78; PULSE 79; RESP 18; TEMP 98.2; O2SAT 99
[2023-05-15] MEDS ORDERED: LORazepam 2 MG/ML VIAL IM ONE ×2 (13:45→18:30)
[2023-05-15] MEDS ORDERED: HALOPERIDOL LACTATE 5 MG/ML VIAL IM ONE ×2 (13:45→18:30)
[2023-05-15] MEDS ORDERED: DiphenhydrAMINE HCL 50 MG/ML VIAL IM ONE ×2 (13:45→18:30)
[2023-05-15] MEDS: ATORVASTATIN CALCIUM 20 MG TABLET PO SCH (21:00)
[2023-05-15] MEDS: OLANZapine 10 MG TABLET PO SCH (21:00)
[2023-05-16 05:50] VITALS: BP 135/80; PULSE 77; RESP 18; TEMP 98.1; O2SAT 98
[2023-05-16 08:17] VITALS: RESP 18
[2023-05-16] MEDS: DIVALPROEX SODIUM 250 MG DR TABLET PO SCH ×2 (08:46→20:28)
[2023-05-16] MEDS: METOPROLOL TARTRATE 25 MG TABLET PO SCH (08:46)
[2023-05-16] MEDS ORDERED: DiphenhydrAMINE HCL 50 MG/ML VIAL ONE (17:45)
[2023-05-16] MEDS ORDERED: HALOPERIDOL LACTATE 5 MG/ML VIAL ONE (17:45)
[2023-05-16] MEDS ORDERED: LORazepam 2 MG/ML VIAL ONE (17:45)
[2023-05-16] MEDS ORDERED: DiphenhydrAMINE HCL 50 MG/ML VIAL IM ONE (18:00)
[2023-05-16] MEDS ORDERED: HALOPERIDOL LACTATE 5 MG/ML VIAL IM ONE (18:00)
[2023-05-16] MEDS ORDERED: LORazepam 2 MG/ML VIAL IM ONE (18:00)
[2023-05-16 20:23] VITALS: BP 141/91; PULSE 100; RESP 18; TEMP 97.6; O2SAT 97
[2023-05-16] MEDS: OLANZapine 10 MG TABLET PO SCH (20:29)
[2023-05-16] MEDS: ATORVASTATIN CALCIUM 20 MG TABLET PO SCH (20:29)
[2023-05-17 08:07] VITALS: BP 146/88; PULSE 68; RESP 18; TEMP 97.7; O2SAT 98
[2023-05-17] MEDS: METOPROLOL TARTRATE 25 MG TABLET PO SCH (09:00)
[2023-05-17] MEDS: DIVALPROEX SODIUM 250 MG DR TABLET PO SCH ×2 (09:00→20:23)
[2023-05-17] MEDS: BENAZEPRIL HCL 10 MG TABLET PO SCH (09:00)
[2023-05-17] MEDS ORDERED: DiphenhydrAMINE HCL 50 MG/ML VIAL IM ONE (12:15)
[2023-05-17] MEDS ORDERED: HALOPERIDOL LACTATE 5 MG/ML VIAL IM ONE (12:15)
[2023-05-17] MEDS ORDERED: LORazepam 2 MG/ML VIAL IM ONE (12:15)
[2023-05-17 20:02] VITALS: RESP 19; TEMP 98
[2023-05-17] MEDS: OLANZapine 10 MG TABLET PO SCH (20:23)
[2023-05-17] MEDS: ATORVASTATIN CALCIUM 20 MG TABLET PO SCH (20:23)
[2023-05-18] MEDS: LORazepam 2 MG TABLET PO PRN (00:24)
[2023-05-18 08:06] VITALS: RESP 16
[2023-05-18] MEDS: DIVALPROEX SODIUM 250 MG DR TABLET PO SCH ×2 (08:44→21:00)
[2023-05-18] MEDS: METOPROLOL TARTRATE 25 MG TABLET PO SCH (08:44)
[2023-05-18] MEDS: BENAZEPRIL HCL 10 MG TABLET PO SCH (08:44)
[2023-05-18 20:03] VITALS: RESP 17
[2023-05-18] MEDS: ATORVASTATIN CALCIUM 20 MG TABLET PO SCH (21:00)
[2023-05-18] MEDS: OLANZapine 10 MG TABLET PO SCH (21:00)
[2023-05-19 08:22] VITALS: RESP 16
[2023-05-19] MEDS: DIVALPROEX SODIUM 250 MG DR TABLET PO SCH ×2 (08:35→20:21)
[2023-05-19] MEDS: METOPROLOL TARTRATE 25 MG TABLET PO SCH (08:35)
[2023-05-19] MEDS: BENAZEPRIL HCL 10 MG TABLET PO SCH (08:36)
[2023-05-19] MEDS ORDERED: HALOPERIDOL LACTATE 5 MG/ML VIAL ONE (16:56)
[2023-05-19] MEDS ORDERED: DiphenhydrAMINE HCL 50 MG/ML VIAL IM ONE (17:00)
[2023-05-19] MEDS ORDERED: LORazepam 2 MG/ML VIAL IM ONE (17:00)
[2023-05-19] MEDS ORDERED: HALOPERIDOL LACTATE 5 MG/ML VIAL IM ONE (17:00)
[2023-05-19 20:14] VITALS: RESP 18; TEMP 97.2
[2023-05-19] MEDS: ATORVASTATIN CALCIUM 20 MG TABLET PO SCH (20:21)
[2023-05-19] MEDS: OLANZapine 10 MG TABLET PO SCH (20:21)
[2023-05-20 08:38] VITALS: BP 126/71; PULSE 86; RESP 17; RESP 18; TEMP 97; O2SAT 98
[2023-05-20] MEDS: DIVALPROEX SODIUM 250 MG DR TABLET PO SCH ×2 (09:00→20:14)
[2023-05-20] MEDS: METOPROLOL TARTRATE 25 MG TABLET PO SCH (09:00)
[2023-05-20] MEDS: BENAZEPRIL HCL 10 MG TABLET PO SCH (09:00)
[2023-05-20] MEDS ORDERED: LORazepam 2 MG/ML VIAL ONE (10:22)
[2023-05-20] MEDS ORDERED: DiphenhydrAMINE HCL 50 MG/ML VIAL ONE (10:23)
[2023-05-20] MEDS ORDERED: HALOPERIDOL LACTATE 5 MG/ML VIAL ONE (10:23)
[2023-05-20] MEDS ORDERED: DiphenhydrAMINE HCL 50 MG/ML VIAL IM ONE (10:30)
[2023-05-20] MEDS ORDERED: HALOPERIDOL LACTATE 5 MG/ML VIAL IM ONE (10:30)
[2023-05-20] MEDS ORDERED: LORazepam 2 MG/ML VIAL IM ONE (10:30)
[2023-05-20 20:03] VITALS: RESP 17
[2023-05-20] MEDS: OLANZapine 10 MG TABLET PO SCH (20:15)
[2023-05-20] MEDS: ATORVASTATIN CALCIUM 20 MG TABLET PO SCH (20:15)
[2023-05-21 08:01] VITALS: RESP 18
[2023-05-21] MEDS: DIVALPROEX SODIUM 250 MG DR TABLET PO SCH ×2 (09:00→20:22)
[2023-05-21] MEDS: METOPROLOL TARTRATE 25 MG TABLET PO SCH (09:00)
[2023-05-21] MEDS: BENAZEPRIL HCL 10 MG TABLET PO SCH (09:00)
[2023-05-21] MEDS ORDERED: LORazepam 2 MG/ML VIAL ONE (15:36)
[2023-05-21] MEDS ORDERED: HALOPERIDOL LACTATE 5 MG/ML VIAL ONE (15:36)
[2023-05-21] MEDS ORDERED: DiphenhydrAMINE HCL 50 MG/ML VIAL ONE (15:37)
[2023-05-21] MEDS ORDERED: HALOPERIDOL LACTATE 5 MG/ML VIAL IM ONE (15:45)
[2023-05-21] MEDS ORDERED: LORazepam 2 MG/ML VIAL IM ONE (15:45)
[2023-05-21] MEDS ORDERED: DiphenhydrAMINE HCL 50 MG/ML VIAL IM ONE (15:45)
[2023-05-21] MEDS: OLANZapine 10 MG TABLET PO SCH (20:22)
[2023-05-21] MEDS: ATORVASTATIN CALCIUM 20 MG TABLET PO SCH (20:22)
[2023-05-22 06:50] VITALS: RESP 18
[2023-05-22 08:03] VITALS: RESP 18
[2023-05-22] MEDS: METOPROLOL TARTRATE 25 MG TABLET PO SCH (09:00)
[2023-05-22] MEDS: BENAZEPRIL HCL 10 MG TABLET PO SCH (09:00)
[2023-05-22] MEDS: DIVALPROEX SODIUM 250 MG DR TABLET PO SCH ×2 (09:00→20:26)
[2023-05-22] MEDS ORDERED: LORazepam 2 MG/ML VIAL ONE (11:19)
[2023-05-22] MEDS ORDERED: HALOPERIDOL LACTATE 5 MG/ML VIAL ONE (11:20)
[2023-05-22] MEDS ORDERED: DiphenhydrAMINE HCL 50 MG/ML VIAL ONE (11:21)
[2023-05-22] MEDS ORDERED: DiphenhydrAMINE HCL 50 MG/ML VIAL IM ONE (11:30)
[2023-05-22] MEDS ORDERED: LORazepam 2 MG/ML VIAL IM ONE (11:30)
[2023-05-22] MEDS ORDERED: HALOPERIDOL LACTATE 5 MG/ML VIAL IM ONE (11:30)
[2023-05-22] MEDS: OLANZapine 10 MG TABLET PO SCH (20:26)
[2023-05-22] MEDS: ATORVASTATIN CALCIUM 20 MG TABLET PO SCH (20:26)
[2023-05-23 07:05] VITALS: RESP 18
[2023-05-23 08:10] VITALS: RESP 16
[2023-05-23] MEDS: METOPROLOL TARTRATE 25 MG TABLET PO SCH (09:00)
[2023-05-23] MEDS: BENAZEPRIL HCL 10 MG TABLET PO SCH (09:00)
[2023-05-23] MEDS: DIVALPROEX SODIUM 250 MG DR TABLET PO SCH ×2 (09:00→21:00)
[2023-05-23 20:29] VITALS: RESP 18
[2023-05-23] MEDS: ATORVASTATIN CALCIUM 20 MG TABLET PO SCH (21:00)
[2023-05-23] MEDS: OLANZapine 10 MG TABLET PO SCH (21:00)
[2023-05-24] MEDS: DIVALPROEX SODIUM 250 MG DR TABLET PO SCH ×3 (08:14→20:28)
[2023-05-24] MEDS: BENAZEPRIL HCL 10 MG TABLET PO SCH ×2 (08:15→09:00)
[2023-05-24] MEDS: METOPROLOL TARTRATE 25 MG TABLET PO SCH ×2 (08:15→09:00)
[2023-05-24 08:24] VITALS: RESP 18
[2023-05-24] MEDS: ATORVASTATIN CALCIUM 20 MG TABLET PO SCH (20:28)
[2023-05-24] MEDS: OLANZapine 10 MG TABLET PO SCH (20:28)
[2023-05-24 22:24] VITALS: RESP 18; TEMP 98.1
[2023-05-25 08:29] VITALS: RESP 16
[2023-05-25] MEDS: BENAZEPRIL HCL 10 MG TABLET PO SCH (09:00)
[2023-05-25] MEDS: DIVALPROEX SODIUM 250 MG DR TABLET PO SCH ×2 (09:00→21:00)
[2023-05-25] MEDS: METOPROLOL TARTRATE 25 MG TABLET PO SCH (09:00)
[2023-05-25] MEDS ORDERED: DiphenhydrAMINE HCL 50 MG/ML VIAL ONE (13:37)
[2023-05-25] MEDS ORDERED: LORazepam 2 MG/ML VIAL ONE (13:37)
[2023-05-25] MEDS ORDERED: HALOPERIDOL LACTATE 5 MG/ML VIAL ONE (13:37)
[2023-05-25] MEDS ORDERED: DiphenhydrAMINE HCL 50 MG/ML VIAL IM ONE (14:15)
[2023-05-25] MEDS ORDERED: LORazepam 2 MG/ML VIAL IM ONE (14:15)
[2023-05-25] MEDS ORDERED: HALOPERIDOL LACTATE 5 MG/ML VIAL IM ONE (14:15)
[2023-05-25 20:27] VITALS: RESP 18
[2023-05-25] MEDS: ATORVASTATIN CALCIUM 20 MG TABLET PO SCH (21:00)
[2023-05-25] MEDS: OLANZapine 10 MG TABLET PO SCH (21:00)
[2023-05-26 08:02] VITALS: RESP 18
[2023-05-26] MEDS: BENAZEPRIL HCL 10 MG TABLET PO SCH (09:00)
[2023-05-26] MEDS: DIVALPROEX SODIUM 250 MG DR TABLET PO SCH ×2 (09:00→21:00)
[2023-05-26] MEDS: METOPROLOL TARTRATE 25 MG TABLET PO SCH (09:00)
[2023-05-26] MEDS ORDERED: LORazepam 2 MG/ML VIAL ONE (10:33)
[2023-05-26] MEDS ORDERED: HALOPERIDOL LACTATE 5 MG/ML VIAL ONE (10:33)
[2023-05-26] MEDS ORDERED: DiphenhydrAMINE HCL 50 MG/ML VIAL ONE (10:33)
[2023-05-26] MEDS ORDERED: LORazepam 2 MG/ML VIAL IM ONE (10:45)
[2023-05-26] MEDS ORDERED: HALOPERIDOL LACTATE 5 MG/ML VIAL IM ONE (10:45)
[2023-05-26] MEDS ORDERED: DiphenhydrAMINE HCL 50 MG/ML VIAL IM ONE (10:45)
[2023-05-26 20:03] VITALS: RESP 18
[2023-05-26] MEDS: OLANZapine 10 MG TABLET PO SCH (21:00)
[2023-05-26] MEDS: ATORVASTATIN CALCIUM 20 MG TABLET PO SCH (21:00)
[2023-05-27] MEDS: METOPROLOL TARTRATE 25 MG TABLET PO SCH (09:00)
[2023-05-27] MEDS: BENAZEPRIL HCL 10 MG TABLET PO SCH (09:00)
[2023-05-27] MEDS: MEGESTROL ACETATE 400 MG/10 ML SUSPENSION UDCUP PO SCH (09:00)
[2023-05-27] MEDS: DIVALPROEX SODIUM 250 MG DR TABLET PO SCH ×2 (09:00→21:00)
[2023-05-27 19:59] VITALS: RESP 20; TEMP 98
[2023-05-27] MEDS: ATORVASTATIN CALCIUM 20 MG TABLET PO SCH (21:00)
[2023-05-27] MEDS: OLANZapine 10 MG TABLET PO SCH (21:00)
[2023-05-28] VITALS: RESP 18; TEMP 97
[2023-05-28 08:03] VITALS: RESP 16
[2023-05-28] MEDS: MEGESTROL ACETATE 400 MG/10 ML SUSPENSION UDCUP PO SCH (09:00)
[2023-05-28] MEDS: DIVALPROEX SODIUM 250 MG DR TABLET PO SCH ×2 (09:00→20:46)
[2023-05-28] MEDS: METOPROLOL TARTRATE 25 MG TABLET PO SCH (09:00)
[2023-05-28] MEDS: BENAZEPRIL HCL 10 MG TABLET PO SCH (09:00)
[2023-05-28 20:06] VITALS: RESP 17; TEMP 97.6
[2023-05-28] MEDS: ATORVASTATIN CALCIUM 20 MG TABLET PO SCH (20:46)
[2023-05-28] MEDS: OLANZapine 10 MG TABLET PO SCH (20:46)
[2023-05-29 08:37] VITALS: RESP 18
[2023-05-29] MEDS: BENAZEPRIL HCL 10 MG TABLET PO SCH (08:48)
[2023-05-29] MEDS: DIVALPROEX SODIUM 250 MG DR TABLET PO SCH ×2 (08:48→20:34)
[2023-05-29] MEDS: METOPROLOL TARTRATE 25 MG TABLET PO SCH (08:48)
[2023-05-29] MEDS: MEGESTROL ACETATE 400 MG/10 ML SUSPENSION UDCUP PO SCH (08:48)
[2023-05-29] MEDS ORDERED: LORazepam 2 MG/ML VIAL ONE (12:48)
[2023-05-29] MEDS ORDERED: DiphenhydrAMINE HCL 50 MG/ML VIAL ONE (12:48)
[2023-05-29] MEDS ORDERED: HALOPERIDOL LACTATE 5 MG/ML VIAL ONE (12:50)
[2023-05-29] MEDS ORDERED: HALOPERIDOL LACTATE 5 MG/ML VIAL IM ONE (13:00)
[2023-05-29] MEDS ORDERED: LORazepam 2 MG/ML VIAL IM ONE (13:00)
[2023-05-29] MEDS ORDERED: DiphenhydrAMINE HCL 50 MG/ML VIAL IM ONE (13:00)
[2023-05-29] MEDS: OLANZapine 10 MG TABLET PO SCH (20:34)
[2023-05-29] MEDS: ATORVASTATIN CALCIUM 20 MG TABLET PO SCH (20:34)
[2023-05-30 08:16] VITALS: RESP 16
[2023-05-30] MEDS: DIVALPROEX SODIUM 250 MG DR TABLET PO SCH ×2 (08:50→21:00)
[2023-05-30] MEDS: METOPROLOL TARTRATE 25 MG TABLET PO SCH (08:51)
[2023-05-30] MEDS: BENAZEPRIL HCL 10 MG TABLET PO SCH (08:51)
[2023-05-30] MEDS: MEGESTROL ACETATE 400 MG/10 ML SUSPENSION UDCUP PO SCH (08:51)
[2023-05-30] MEDS ORDERED: HALOPERIDOL LACTATE 5 MG/ML VIAL ONE (11:54)
[2023-05-30] MEDS ORDERED: LORazepam 2 MG/ML VIAL ONE (11:54)
[2023-05-30] MEDS ORDERED: DiphenhydrAMINE HCL 50 MG/ML VIAL ONE (11:55)
[2023-05-30] MEDS ORDERED: LORazepam 2 MG/ML VIAL IM ONE (12:00)
[2023-05-30] MEDS ORDERED: DiphenhydrAMINE HCL 50 MG/ML VIAL IM ONE (12:00)
[2023-05-30] MEDS ORDERED: HALOPERIDOL LACTATE 5 MG/ML VIAL IM ONE (12:00)
[2023-05-30 20:09] VITALS: RESP 19
[2023-05-30] MEDS: OLANZapine 10 MG TABLET PO SCH (21:00)
[2023-05-30] MEDS: ATORVASTATIN CALCIUM 20 MG TABLET PO SCH (21:00)
[2023-05-31 08:26] VITALS: BP 103/61; PULSE 87; RESP 17; TEMP 97.7; O2SAT 96
[2023-05-31] MEDS: DIVALPROEX SODIUM 250 MG DR TABLET PO SCH ×2 (09:00→21:00)
[2023-05-31] MEDS: METOPROLOL TARTRATE 25 MG TABLET PO SCH (09:00)
[2023-05-31] MEDS: BENAZEPRIL HCL 10 MG TABLET PO SCH (09:00)
[2023-05-31] MEDS: MEGESTROL ACETATE 400 MG/10 ML SUSPENSION UDCUP PO SCH (09:00)
[2023-05-31] MEDS ORDERED: DiphenhydrAMINE HCL 50 MG/ML VIAL IM ONE (10:45)
[2023-05-31] MEDS ORDERED: LORazepam 2 MG/ML VIAL IM ONE (10:45)
[2023-05-31] MEDS ORDERED: HALOPERIDOL LACTATE 5 MG/ML VIAL IM ONE (10:45)
[2023-05-31 20:15] VITALS: RESP 18
[2023-05-31] MEDS: ATORVASTATIN CALCIUM 20 MG TABLET PO SCH (21:00)
[2023-05-31] MEDS: OLANZapine 10 MG TABLET PO SCH (21:00)
[2023-06-01 08:15] VITALS: RESP 16
[2023-06-01] MEDS: DIVALPROEX SODIUM 250 MG DR TABLET PO SCH ×2 (08:19→20:31)
[2023-06-01] MEDS: METOPROLOL TARTRATE 25 MG TABLET PO SCH (08:19)
[2023-06-01] MEDS: BENAZEPRIL HCL 10 MG TABLET PO SCH (08:20)
[2023-06-01] MEDS: MEGESTROL ACETATE 400 MG/10 ML SUSPENSION UDCUP PO SCH (08:20)
[2023-06-01] MEDS ORDERED: LORazepam 2 MG/ML VIAL IM ONE (11:00)
[2023-06-01] MEDS ORDERED: HALOPERIDOL LACTATE 5 MG/ML VIAL IM ONE (11:00)
[2023-06-01] MEDS ORDERED: DiphenhydrAMINE HCL 50 MG/ML VIAL IM ONE (11:00)
[2023-06-01 20:06] VITALS: RESP 17
[2023-06-01] MEDS: OLANZapine 10 MG TABLET PO SCH (20:31)
[2023-06-01] MEDS: ATORVASTATIN CALCIUM 20 MG TABLET PO SCH (20:31)
[2023-06-02 08:01] VITALS: RESP 16; TEMP 97.9
[2023-06-02] MEDS: DIVALPROEX SODIUM 250 MG DR TABLET PO SCH ×2 (09:00→21:00)
[2023-06-02] MEDS: METOPROLOL TARTRATE 25 MG TABLET PO SCH (09:00)
[2023-06-02] MEDS: MEGESTROL ACETATE 400 MG/10 ML SUSPENSION UDCUP PO SCH (09:00)
[2023-06-02] MEDS: BENAZEPRIL HCL 10 MG TABLET PO SCH (09:00)
[2023-06-02] MEDS ORDERED: LORazepam 2 MG/ML VIAL IM ONE (13:45)
[2023-06-02] MEDS ORDERED: HALOPERIDOL LACTATE 5 MG/ML VIAL IM ONE (13:45)
[2023-06-02] MEDS ORDERED: DiphenhydrAMINE HCL 50 MG/ML VIAL IM ONE (13:45)
[2023-06-02] MEDS: ATORVASTATIN CALCIUM 20 MG TABLET PO SCH (21:00)
[2023-06-02] MEDS: OLANZapine 10 MG TABLET PO SCH (21:00)
[2023-06-03 03:34] VITALS: RESP 19
[2023-06-03 08:18] VITALS: RESP 20
[2023-06-03] MEDS: METOPROLOL TARTRATE 25 MG TABLET PO SCH (09:00)
[2023-06-03] MEDS: BENAZEPRIL HCL 10 MG TABLET PO SCH (09:00)
[2023-06-03] MEDS: DIVALPROEX SODIUM 250 MG DR TABLET PO SCH ×2 (09:00→20:15)
[2023-06-03] MEDS: MEGESTROL ACETATE 400 MG/10 ML SUSPENSION UDCUP PO SCH (09:00)
[2023-06-03 20:05] VITALS: RESP 18
[2023-06-03] MEDS: ATORVASTATIN CALCIUM 20 MG TABLET PO SCH (20:16)
[2023-06-03] MEDS: OLANZapine 10 MG TABLET PO SCH (20:16)
[2023-06-04] MEDS: BENAZEPRIL HCL 10 MG TABLET PO SCH (09:00)
[2023-06-04] MEDS: MEGESTROL ACETATE 400 MG/10 ML SUSPENSION UDCUP PO SCH (09:00)
[2023-06-04] MEDS: DIVALPROEX SODIUM 250 MG DR TABLET PO SCH ×2 (09:00→20:18)
[2023-06-04] MEDS: METOPROLOL TARTRATE 25 MG TABLET PO SCH (09:00)
[2023-06-04] MEDS ORDERED: HALOPERIDOL LACTATE 5 MG/ML VIAL ONE (14:38)
[2023-06-04] MEDS ORDERED: DiphenhydrAMINE HCL 50 MG/ML VIAL ONE (14:38)
[2023-06-04] MEDS ORDERED: HALOPERIDOL LACTATE 5 MG/ML VIAL IM ONE ×2 (14:45→23:45)
[2023-06-04] MEDS ORDERED: LORazepam 2 MG/ML VIAL IM ONE ×2 (14:45→23:45)
[2023-06-04] MEDS ORDERED: DiphenhydrAMINE HCL 50 MG/ML VIAL IM ONE ×2 (14:45→23:45)
[2023-06-04 20:03] VITALS: RESP 18; TEMP 97.8
[2023-06-04] MEDS: ATORVASTATIN CALCIUM 20 MG TABLET PO SCH (20:18)
[2023-06-04] MEDS: OLANZapine 10 MG TABLET PO SCH (20:18)
[2023-06-05 00:22] VITALS: RESP 18
[2023-06-05 01:04] VITALS: RESP 18
[2023-06-05 08:03] VITALS: RESP 16
[2023-06-05] MEDS: DIVALPROEX SODIUM 250 MG DR TABLET PO SCH ×2 (09:00→21:00)
[2023-06-05] MEDS: BENAZEPRIL HCL 10 MG TABLET PO SCH (09:00)
[2023-06-05] MEDS: METOPROLOL TARTRATE 25 MG TABLET PO SCH (09:00)
[2023-06-05] MEDS: MEGESTROL ACETATE 400 MG/10 ML SUSPENSION UDCUP PO SCH (09:00)
[2023-06-05] MEDS: ATORVASTATIN CALCIUM 20 MG TABLET PO SCH (21:00)
[2023-06-05] MEDS: OLANZapine 10 MG TABLET PO SCH (21:00)
[2023-06-06 06:49] VITALS: RESP 18
[2023-06-06 08:29] VITALS: RESP 16
[2023-06-06] MEDS: DIVALPROEX SODIUM 250 MG DR TABLET PO SCH ×2 (08:37→21:00)
[2023-06-06] MEDS: BENAZEPRIL HCL 10 MG TABLET PO SCH (08:37)
[2023-06-06] MEDS: METOPROLOL TARTRATE 25 MG TABLET PO SCH (08:37)
[2023-06-06] MEDS: MEGESTROL ACETATE 400 MG/10 ML SUSPENSION UDCUP PO SCH (08:38)
[2023-06-06 20:00] VITALS: RESP 18
[2023-06-06] MEDS: ATORVASTATIN CALCIUM 20 MG TABLET PO SCH (21:00)
[2023-06-06] MEDS: OLANZapine 10 MG TABLET PO SCH (21:00)
[2023-06-07 08:01] LABS: BASOPHILS % (AUTO) 0.4 % (0.0-2.0); EOSINOPHILS % (AUTO) 0.3 % (1.0-6.0); HEMATOCRIT 41.8 % (36-46); HEMOGLOBIN 13.8 g/dL (12.0-16.0); LYMPHOCYTES # (AUTO) 4.6 K/uL (1.0-4.8); LYMPHOCYTES % (AUTO) 40.8 % (22.0-44.0); MEAN CORPUSCULAR HEMOGLOBIN 30.9 pg (26.0-34.0); MEAN CORPUSCULAR HGB CONC 33.1 G/dL (31.0-37.0); MEAN CORPUSCULAR VOLUME 93 fL (80-100); MONOCYTES % (AUTO) 9.2 % (2.0-9.0); NEUTROPHILS # (AUTO) 5.6 K/uL (1.8-7.7); NEUTROPHILS % (AUTO) 49.3 % (40.0-70.0); PLATELET COUNT (AUTO) 273 K/uL (150-450); RED BLOOD CELL COUNT(AUTO) 4.49 MIL/uL (4.00-5.20); RED CELL DISTRIBUTION WIDTH 15.1 % (11.5-14.5); WHITE BLOOD COUNT (AUTO) 11.3 K/uL (4.5-11.0)
[2023-06-07 08:02] VITALS: RESP 18
[2023-06-07 08:17] LABS: ALBUMIN 3.9 g/dL (3.4-5.0); BILIRUBIN,TOTAL 0.7 mg/dL (0.1-1.0); CALCIUM, TOTAL 10.5 mg/dL (8.8-10.5); CREATININE 1.28 mg/dL (0.60-1.30); POTASSIUM 4.1 mmol/L (3.5-5.1); TOTAL PROTEIN, SERUM 8.1 g/dL (6.4-8.2)
[2023-06-07] MEDS: MEGESTROL ACETATE 400 MG/10 ML SUSPENSION UDCUP PO SCH (09:00)
[2023-06-07] MEDS: DIVALPROEX SODIUM 250 MG DR TABLET PO SCH ×2 (09:00→21:00)
[2023-06-07] MEDS: BENAZEPRIL HCL 10 MG TABLET PO SCH (09:00)
[2023-06-07] MEDS: METOPROLOL TARTRATE 25 MG TABLET PO SCH (09:00)
[2023-06-07] MEDS ORDERED: LORazepam 2 MG/ML VIAL IM ONE (10:15)
[2023-06-07] MEDS ORDERED: DiphenhydrAMINE HCL 50 MG/ML VIAL IM ONE (10:15)
[2023-06-07] MEDS ORDERED: HALOPERIDOL LACTATE 5 MG/ML VIAL IM ONE (10:15)
[2023-06-07] MEDS: OLANZapine 10 MG TABLET PO SCH (21:00)
[2023-06-07] MEDS: ATORVASTATIN CALCIUM 20 MG TABLET PO SCH (21:00)
[2023-06-07 22:22] VITALS: RESP 18
[2023-06-08 07:50] VITALS: RESP 16
[2023-06-08 08:07] VITALS: RESP 16
[2023-06-08] MEDS: MEGESTROL ACETATE 400 MG/10 ML SUSPENSION UDCUP PO SCH (09:00)
[2023-06-08] MEDS: DIVALPROEX SODIUM 250 MG DR TABLET PO SCH ×2 (09:00→21:00)
[2023-06-08] MEDS: BENAZEPRIL HCL 10 MG TABLET PO SCH (09:00)
[2023-06-08] MEDS: METOPROLOL TARTRATE 25 MG TABLET PO SCH (09:00)
[2023-06-08] MEDS ORDERED: DiphenhydrAMINE HCL 50 MG/ML VIAL ONE (16:41)
[2023-06-08] MEDS ORDERED: HALOPERIDOL LACTATE 5 MG/ML VIAL ONE (16:41)
[2023-06-08] MEDS ORDERED: LORazepam 2 MG/ML VIAL ONE (16:41)
[2023-06-08] MEDS ORDERED: HALOPERIDOL LACTATE 5 MG/ML VIAL IM ONE (16:45)
[2023-06-08] MEDS ORDERED: LORazepam 2 MG/ML VIAL IM ONE (16:45)
[2023-06-08] MEDS ORDERED: DiphenhydrAMINE HCL 50 MG/ML VIAL IM ONE (16:45)
[2023-06-08 20:03] VITALS: RESP 17
[2023-06-08] MEDS: ATORVASTATIN CALCIUM 20 MG TABLET PO SCH (21:00)
[2023-06-08] MEDS: OLANZapine 10 MG TABLET PO SCH (21:00)
[2023-06-09 08:21] VITALS: BP 136/79; PULSE 101; RESP 17; TEMP 97.6; O2SAT 76
[2023-06-09] MEDS: BENAZEPRIL HCL 10 MG TABLET PO SCH (09:00)
[2023-06-09] MEDS: METOPROLOL TARTRATE 25 MG TABLET PO SCH (09:00)
[2023-06-09] MEDS: MEGESTROL ACETATE 400 MG/10 ML SUSPENSION UDCUP PO SCH (09:00)
[2023-06-09] MEDS: DIVALPROEX SODIUM 250 MG DR TABLET PO SCH ×2 (09:00→20:27)
[2023-06-09] MEDS ORDERED: LORazepam 2 MG/ML VIAL IM ONE (19:00)
[2023-06-09] MEDS ORDERED: DiphenhydrAMINE HCL 50 MG/ML VIAL IM ONE (19:00)
[2023-06-09] MEDS ORDERED: HALOPERIDOL LACTATE 5 MG/ML VIAL IM ONE (19:00)
[2023-06-09] MEDS: ATORVASTATIN CALCIUM 20 MG TABLET PO SCH (20:27)
[2023-06-09] MEDS: OLANZapine 10 MG TABLET PO SCH (20:27)
[2023-06-09 21:08] VITALS: RESP 18; TEMP 97.8
[2023-06-10 08:30] VITALS: BP 135/74; PULSE 101; RESP 18; TEMP 97.6; O2SAT 97
[2023-06-10] MEDS: METOPROLOL TARTRATE 25 MG TABLET PO SCH (09:00)
[2023-06-10] MEDS: BENAZEPRIL HCL 10 MG TABLET PO SCH (09:00)
[2023-06-10] MEDS: MEGESTROL ACETATE 400 MG/10 ML SUSPENSION UDCUP PO SCH (09:00)
[2023-06-10] MEDS: DIVALPROEX SODIUM 250 MG DR TABLET PO SCH ×2 (09:00→20:51)
[2023-06-10] MEDS ORDERED: DiphenhydrAMINE HCL 50 MG/ML VIAL ONE (17:38)
[2023-06-10] MEDS ORDERED: HALOPERIDOL LACTATE 5 MG/ML VIAL ONE (17:38)
[2023-06-10] MEDS ORDERED: LORazepam 2 MG/ML VIAL ONE (17:38)
[2023-06-10] MEDS ORDERED: HALOPERIDOL LACTATE 5 MG/ML VIAL IM ONE (18:00)
[2023-06-10] MEDS ORDERED: LORazepam 2 MG/ML VIAL IM ONE (18:00)
[2023-06-10] MEDS ORDERED: DiphenhydrAMINE HCL 50 MG/ML VIAL IM ONE (18:00)
[2023-06-10 20:22] VITALS: RESP 20; TEMP 98
[2023-06-10] MEDS: OLANZapine 10 MG TABLET PO SCH (20:51)
[2023-06-10] MEDS: ATORVASTATIN CALCIUM 20 MG TABLET PO SCH (20:51)
[2023-06-11 08:13] VITALS: RESP 18
[2023-06-11] MEDS: METOPROLOL TARTRATE 25 MG TABLET PO SCH (09:00)
[2023-06-11] MEDS: BENAZEPRIL HCL 10 MG TABLET PO SCH (09:00)
[2023-06-11] MEDS: MEGESTROL ACETATE 400 MG/10 ML SUSPENSION UDCUP PO SCH (09:00)
[2023-06-11] MEDS: DIVALPROEX SODIUM 250 MG DR TABLET PO SCH ×2 (09:00→20:09)
[2023-06-11] MEDS ORDERED: LORazepam 2 MG/ML VIAL IM ONE (16:00)
[2023-06-11] MEDS ORDERED: HALOPERIDOL LACTATE 5 MG/ML VIAL IM ONE (16:00)
[2023-06-11] MEDS ORDERED: DiphenhydrAMINE HCL 50 MG/ML VIAL IM ONE (16:00)
[2023-06-11 20:00] VITALS: RESP 18; TEMP 97.6; O2SAT 97
[2023-06-11] MEDS: OLANZapine 10 MG TABLET PO SCH (20:08)
[2023-06-11] MEDS: ATORVASTATIN CALCIUM 20 MG TABLET PO SCH (20:08)
[2023-06-12] MEDS: DIVALPROEX SODIUM 250 MG DR TABLET PO SCH ×2 (08:02→20:39)
[2023-06-12] MEDS: BENAZEPRIL HCL 10 MG TABLET PO SCH (08:02)
[2023-06-12] MEDS: METOPROLOL TARTRATE 25 MG TABLET PO SCH (08:02)
[2023-06-12] MEDS: MEGESTROL ACETATE 400 MG/10 ML SUSPENSION UDCUP PO SCH (08:02)
[2023-06-12 08:32] VITALS: RESP 16
[2023-06-12] MEDS ORDERED: DiphenhydrAMINE HCL 50 MG/ML VIAL ONE (18:52)
[2023-06-12] MEDS ORDERED: LORazepam 2 MG/ML VIAL ONE (18:52)
[2023-06-12] MEDS ORDERED: HALOPERIDOL LACTATE 5 MG/ML VIAL ONE (18:52)
[2023-06-12] MEDS ORDERED: LORazepam 2 MG/ML VIAL IM ONE (19:00)
[2023-06-12] MEDS ORDERED: DiphenhydrAMINE HCL 50 MG/ML VIAL IM ONE (19:00)
[2023-06-12] MEDS ORDERED: HALOPERIDOL LACTATE 5 MG/ML VIAL IM ONE (19:00)
[2023-06-12] MEDS: ATORVASTATIN CALCIUM 20 MG TABLET PO SCH (20:39)
[2023-06-12] MEDS: OLANZapine 10 MG TABLET PO SCH (20:39)
[2023-06-13 08:14] VITALS: RESP 16
[2023-06-13] MEDS: DIVALPROEX SODIUM 250 MG DR TABLET PO SCH ×2 (08:48→21:00)
[2023-06-13] MEDS: BENAZEPRIL HCL 10 MG TABLET PO SCH (08:48)
[2023-06-13] MEDS: METOPROLOL TARTRATE 25 MG TABLET PO SCH (08:48)
[2023-06-13] MEDS: MEGESTROL ACETATE 400 MG/10 ML SUSPENSION UDCUP PO SCH (08:48)
[2023-06-13] MEDS ORDERED: HALOPERIDOL LACTATE 5 MG/ML VIAL ONE (18:17)
[2023-06-13] MEDS ORDERED: LORazepam 2 MG/ML VIAL ONE (18:17)
[2023-06-13] MEDS ORDERED: DiphenhydrAMINE HCL 50 MG/ML VIAL ONE (18:17)
[2023-06-13] MEDS ORDERED: DiphenhydrAMINE HCL 50 MG/ML VIAL IM ONE (18:30)
[2023-06-13] MEDS ORDERED: HALOPERIDOL LACTATE 5 MG/ML VIAL IM ONE (18:30)
[2023-06-13] MEDS ORDERED: LORazepam 2 MG/ML VIAL IM ONE (18:30)
[2023-06-13 20:26] VITALS: BP 142/89; PULSE 105; RESP 18; TEMP 96.7; O2SAT 98
[2023-06-13] MEDS: ATORVASTATIN CALCIUM 20 MG TABLET PO SCH (21:00)
[2023-06-13] MEDS: OLANZapine 10 MG TABLET PO SCH (21:00)
[2023-06-14 08:07] VITALS: BP 141/80; PULSE 113; RESP 17; TEMP 97.9; O2SAT 96
[2023-06-14] MEDS: BENAZEPRIL HCL 10 MG TABLET PO SCH ×2 (08:19→09:53)
[2023-06-14] MEDS: DIVALPROEX SODIUM 250 MG DR TABLET PO SCH ×3 (08:19→21:00)
[2023-06-14] MEDS: MEGESTROL ACETATE 400 MG/10 ML SUSPENSION UDCUP PO SCH ×2 (08:19→09:53)
[2023-06-14] MEDS: METOPROLOL TARTRATE 25 MG TABLET PO SCH ×2 (08:19→09:53)
[2023-06-14 10:00] VITALS: PULSE 98
[2023-06-14] MEDS ORDERED: LORazepam 2 MG/ML VIAL ONE (10:39)
[2023-06-14] MEDS ORDERED: DiphenhydrAMINE HCL 50 MG/ML VIAL ONE (10:40)
[2023-06-14] MEDS ORDERED: HALOPERIDOL LACTATE 5 MG/ML VIAL ONE (10:40)
[2023-06-14] MEDS ORDERED: HALOPERIDOL LACTATE 5 MG/ML VIAL IM ONE (10:45)
[2023-06-14] MEDS ORDERED: DiphenhydrAMINE HCL 50 MG/ML VIAL IM ONE (10:45)
[2023-06-14] MEDS ORDERED: LORazepam 2 MG/ML VIAL IM ONE (10:45)
[2023-06-14] MEDS ORDERED: TUBERCULIN, PURIFIED PROTEIN DERIVATIVE 5 TU/0.1 ML SYRINGE ID ONE (16:30)
[2023-06-14 20:02] VITALS: RESP 20
[2023-06-14] MEDS: ATORVASTATIN CALCIUM 20 MG TABLET PO SCH (21:00)
[2023-06-14] MEDS: OLANZapine 10 MG TABLET PO SCH (21:00)
[2023-06-15 08:13] VITALS: RESP 18
[2023-06-15] MEDS: BENAZEPRIL HCL 10 MG TABLET PO SCH (09:00)
[2023-06-15] MEDS: DIVALPROEX SODIUM 250 MG DR TABLET PO SCH ×2 (09:00→21:00)
[2023-06-15] MEDS: MEGESTROL ACETATE 400 MG/10 ML SUSPENSION UDCUP PO SCH (09:00)
[2023-06-15] MEDS: METOPROLOL TARTRATE 25 MG TABLET PO SCH (09:00)
[2023-06-15 20:21] VITALS: RESP 17
[2023-06-15] MEDS: ATORVASTATIN CALCIUM 20 MG TABLET PO SCH (21:00)
[2023-06-15] MEDS: OLANZapine 10 MG TABLET PO SCH (21:00)
[2023-06-16 08:03] VITALS: RESP 18; TEMP 98.3
[2023-06-16] MEDS: DIVALPROEX SODIUM 250 MG DR TABLET PO SCH ×2 (08:52→21:00)
[2023-06-16] MEDS: BENAZEPRIL HCL 10 MG TABLET PO SCH (08:53)
[2023-06-16] MEDS: METOPROLOL TARTRATE 25 MG TABLET PO SCH (08:53)
[2023-06-16] MEDS: MEGESTROL ACETATE 400 MG/10 ML SUSPENSION UDCUP PO SCH (08:53)
[2023-06-16] MEDS ORDERED: LORazepam 2 MG/ML VIAL ONE (10:33)
[2023-06-16] MEDS ORDERED: DiphenhydrAMINE HCL 50 MG/ML VIAL ONE (10:33)
[2023-06-16] MEDS ORDERED: HALOPERIDOL LACTATE 5 MG/ML VIAL ONE (10:34)
[2023-06-16] MEDS ORDERED: DiphenhydrAMINE HCL 50 MG/ML VIAL IM ONE (10:45)
[2023-06-16] MEDS ORDERED: LORazepam 2 MG/ML VIAL IM ONE (10:45)
[2023-06-16] MEDS ORDERED: HALOPERIDOL LACTATE 5 MG/ML VIAL IM ONE (10:45)
[2023-06-16] MEDS: OLANZapine 10 MG TABLET PO SCH (20:40)
[2023-06-16] MEDS: ATORVASTATIN CALCIUM 20 MG TABLET PO SCH (21:00)
[2023-06-17 08:08] VITALS: RESP 18; TEMP 98.6
[2023-06-17] MEDS: DIVALPROEX SODIUM 250 MG DR TABLET PO SCH ×2 (08:48→20:19)
[2023-06-17] MEDS: METOPROLOL TARTRATE 25 MG TABLET PO SCH (08:48)
[2023-06-17] MEDS: MEGESTROL ACETATE 400 MG/10 ML SUSPENSION UDCUP PO SCH (08:49)
[2023-06-17] MEDS: BENAZEPRIL HCL 10 MG TABLET PO SCH (08:49)
[2023-06-17] MEDS ORDERED: LORazepam 2 MG/ML VIAL ONE (09:26)
[2023-06-17] MEDS ORDERED: LORazepam 2 MG/ML VIAL IM ONE (09:30)
[2023-06-17 20:11] VITALS: RESP 20
[2023-06-17] MEDS: ATORVASTATIN CALCIUM 20 MG TABLET PO SCH (20:19)
[2023-06-17] MEDS: OLANZapine 10 MG TABLET PO SCH (20:20)
[2023-06-18 08:01] VITALS: BP 107/60; PULSE 97; RESP 17; TEMP 98.3; O2SAT 98
[2023-06-18] MEDS: DIVALPROEX SODIUM 250 MG DR TABLET PO SCH ×3 (09:00→21:18)
[2023-06-18] MEDS: METOPROLOL TARTRATE 25 MG TABLET PO SCH (09:00)
[2023-06-18] MEDS: MEGESTROL ACETATE 400 MG/10 ML SUSPENSION UDCUP PO SCH (09:00)
[2023-06-18] MEDS: BENAZEPRIL HCL 10 MG TABLET PO SCH (09:00)
[2023-06-18 20:09] VITALS: RESP 18; TEMP 97.9; O2SAT 97
[2023-06-18] MEDS: OLANZapine 10 MG TABLET PO SCH ×2 (21:00→21:17)
[2023-06-18] MEDS: ATORVASTATIN CALCIUM 20 MG TABLET PO SCH ×2 (21:00→21:17)
[2023-06-19 08:05] VITALS: BP 115/62; PULSE 62; RESP 18; TEMP 97.6; O2SAT 96
[2023-06-19] MEDS: MEGESTROL ACETATE 400 MG/10 ML SUSPENSION UDCUP PO SCH (08:45)
[2023-06-19] MEDS: BENAZEPRIL HCL 10 MG TABLET PO SCH (08:45)
[2023-06-19] MEDS: METOPROLOL TARTRATE 25 MG TABLET PO SCH (08:45)
[2023-06-19] MEDS: DIVALPROEX SODIUM 250 MG DR TABLET PO SCH ×2 (08:45→20:40)
[2023-06-19] MEDS: ATORVASTATIN CALCIUM 20 MG TABLET PO SCH (20:41)
[2023-06-19] MEDS: ZOLPIDEM TARTRATE 10 MG TABLET PO PRN (20:41)
[2023-06-19] MEDS: OLANZapine 10 MG TABLET PO SCH (20:41)
[2023-06-20 03:31] VITALS: BP 157/78; PULSE 99; RESP 18; TEMP 97.8
[2023-06-20 08:08] VITALS: BP 114/66; PULSE 89; RESP 17; TEMP 97.6; O2SAT 98
[2023-06-20] MEDS: BENAZEPRIL HCL 10 MG TABLET PO SCH (09:00)
[2023-06-20] MEDS: MEGESTROL ACETATE 400 MG/10 ML SUSPENSION UDCUP PO SCH (09:00)
[2023-06-20] MEDS: METOPROLOL TARTRATE 25 MG TABLET PO SCH (09:00)
[2023-06-20] MEDS: DIVALPROEX SODIUM 250 MG DR TABLET PO SCH ×2 (09:00→21:00)
[2023-06-20 20:41] VITALS: RESP 18; TEMP 97.8; O2SAT 97
[2023-06-20] MEDS: ATORVASTATIN CALCIUM 20 MG TABLET PO SCH (21:00)
[2023-06-20] MEDS: OLANZapine 10 MG TABLET PO SCH (21:00)
[2023-06-21] MEDS: DIVALPROEX SODIUM 250 MG DR TABLET PO SCH ×3 (09:00→21:00)
[2023-06-21] MEDS: MEGESTROL ACETATE 400 MG/10 ML SUSPENSION UDCUP PO SCH (09:00)
[2023-06-21] MEDS: BENAZEPRIL HCL 10 MG TABLET PO SCH (09:00)
[2023-06-21] MEDS: METOPROLOL TARTRATE 25 MG TABLET PO SCH (09:00)
[2023-06-21 09:36] VITALS: RESP 18
[2023-06-21] MEDS: LORazepam 2 MG TABLET PO PRN (20:08)
[2023-06-21] MEDS: ZOLPIDEM TARTRATE 10 MG TABLET PO PRN (20:08)
[2023-06-21] MEDS: OLANZapine 10 MG TABLET PO SCH ×2 (20:09→21:00)
[2023-06-21] MEDS: ATORVASTATIN CALCIUM 20 MG TABLET PO SCH (21:00)
[2023-06-22 02:57] VITALS: RESP 18; O2SAT 96
[2023-06-22] MEDS ORDERED: LORazepam 2 MG/ML VIAL IM ONE (08:00)
[2023-06-22] MEDS ORDERED: DiphenhydrAMINE HCL 50 MG/ML VIAL IM ONE (08:00)
[2023-06-22] MEDS ORDERED: HALOPERIDOL LACTATE 5 MG/ML VIAL IM ONE (08:00)
[2023-06-22 08:13] VITALS: RESP 18
[2023-06-22] MEDS: METOPROLOL TARTRATE 25 MG TABLET PO SCH (08:30)
[2023-06-22] MEDS: MEGESTROL ACETATE 400 MG/10 ML SUSPENSION UDCUP PO SCH (08:30)
[2023-06-22] MEDS: BENAZEPRIL HCL 10 MG TABLET PO SCH (08:30)
[2023-06-22] MEDS: DIVALPROEX SODIUM 250 MG DR TABLET PO SCH ×2 (08:30→20:21)
[2023-06-22] MEDS: ZOLPIDEM TARTRATE 10 MG TABLET PO PRN (20:21)
[2023-06-22] MEDS: ATORVASTATIN CALCIUM 20 MG TABLET PO SCH (20:21)
[2023-06-22] MEDS: LORazepam 2 MG TABLET PO PRN (20:21)
[2023-06-22] MEDS: OLANZapine 10 MG TABLET PO SCH (20:21)
[2023-06-22 20:25] VITALS: BP 168/77; PULSE 131; RESP 18; TEMP 98; O2SAT 98
[2023-06-23] MEDS: DIVALPROEX SODIUM 250 MG DR TABLET PO SCH ×2 (08:59→21:00)
[2023-06-23] MEDS: METOPROLOL TARTRATE 25 MG TABLET PO SCH (09:00)
[2023-06-23] MEDS: BENAZEPRIL HCL 10 MG TABLET PO SCH (09:00)
[2023-06-23] MEDS: MEGESTROL ACETATE 400 MG/10 ML SUSPENSION UDCUP PO SCH (09:00)
[2023-06-23 09:05] VITALS: BP 147/87; PULSE 130; RESP 18; TEMP 97; O2SAT 97
[2023-06-23] MEDS: OLANZapine 10 MG TABLET PO SCH (21:00)
[2023-06-23] MEDS: ATORVASTATIN CALCIUM 20 MG TABLET PO SCH (21:00)
[2023-06-23 22:30] VITALS: RESP 18
[2023-06-24 08:37] VITALS: BP 149/76; PULSE 111; RESP 18; TEMP 97.5; O2SAT 97
[2023-06-24] MEDS: DIVALPROEX SODIUM 250 MG DR TABLET PO SCH ×2 (08:43→20:03)
[2023-06-24] MEDS: METOPROLOL TARTRATE 25 MG TABLET PO SCH (08:43)
[2023-06-24] MEDS: BENAZEPRIL HCL 10 MG TABLET PO SCH (08:44)
[2023-06-24] MEDS: MEGESTROL ACETATE 400 MG/10 ML SUSPENSION UDCUP PO SCH ×2 (08:44→08:50)
[2023-06-24 18:13] VITALS: BP 101/58; PULSE 78; RESP 19; TEMP 97.3; O2SAT 98
[2023-06-24] MEDS: OLANZapine 10 MG TABLET PO SCH (20:03)
[2023-06-24] MEDS: ATORVASTATIN CALCIUM 20 MG TABLET PO SCH (20:07)
[2023-06-24 20:09] VITALS: BP 100/58; PULSE 83; RESP 18; TEMP 97.3; O2SAT 98
[2023-06-25] MEDS: METOPROLOL TARTRATE 25 MG TABLET PO SCH (09:00)
[2023-06-25] MEDS: BENAZEPRIL HCL 10 MG TABLET PO SCH (09:00)
[2023-06-25] MEDS: MEGESTROL ACETATE 400 MG/10 ML SUSPENSION UDCUP PO SCH (09:00)
[2023-06-25] MEDS: DIVALPROEX SODIUM 250 MG DR TABLET PO SCH ×2 (09:00→20:12)
[2023-06-25 09:45] VITALS: RESP 19
[2023-06-25 20:03] VITALS: BP 111/61; PULSE 86; RESP 18; TEMP 97.3; O2SAT 98
[2023-06-25] MEDS: ATORVASTATIN CALCIUM 20 MG TABLET PO SCH (20:12)
[2023-06-25] MEDS: OLANZapine 10 MG TABLET PO SCH (20:12)
[2023-06-25] MEDS: ZOLPIDEM TARTRATE 10 MG TABLET PO PRN (22:37)
[2023-06-25] MEDS: LORazepam 2 MG TABLET PO PRN (22:37)
[2023-06-26] MEDS: DIVALPROEX SODIUM 250 MG DR TABLET PO SCH ×3 (08:29→21:47)
[2023-06-26] MEDS: METOPROLOL TARTRATE 25 MG TABLET PO SCH (08:29)
[2023-06-26] MEDS: MEGESTROL ACETATE 400 MG/10 ML SUSPENSION UDCUP PO SCH (08:29)
[2023-06-26] MEDS: BENAZEPRIL HCL 10 MG TABLET PO SCH (08:29)
[2023-06-26 09:06] VITALS: BP 122/70; PULSE 87; RESP 17; TEMP 97.3; O2SAT 98
[2023-06-26 20:05] VITALS: RESP 18
[2023-06-26] MEDS: OLANZapine 10 MG TABLET PO SCH ×2 (20:29→21:47)
[2023-06-26] MEDS: ATORVASTATIN CALCIUM 20 MG TABLET PO SCH ×2 (20:29→21:47)
[2023-06-27 08:19] VITALS: RESP 18
[2023-06-27] MEDS: BENAZEPRIL HCL 10 MG TABLET PO SCH (08:25)
[2023-06-27] MEDS: DIVALPROEX SODIUM 250 MG DR TABLET PO SCH ×2 (08:25→20:50)
[2023-06-27] MEDS: METOPROLOL TARTRATE 25 MG TABLET PO SCH (08:25)
[2023-06-27] MEDS: MEGESTROL ACETATE 400 MG/10 ML SUSPENSION UDCUP PO SCH (08:26)
[2023-06-27 20:06] VITALS: BP 116/67; PULSE 76; RESP 18; TEMP 97.9; O2SAT 100
[2023-06-27] MEDS: ATORVASTATIN CALCIUM 20 MG TABLET PO SCH (20:49)
[2023-06-27] MEDS: OLANZapine 10 MG TABLET PO SCH (20:50)
[2023-06-28 08:42] VITALS: BP 100/62; PULSE 70; RESP 17; TEMP 98; O2SAT 95
[2023-06-28] MEDS: MEGESTROL ACETATE 400 MG/10 ML SUSPENSION UDCUP PO SCH (09:00)
[2023-06-28] MEDS: DIVALPROEX SODIUM 250 MG DR TABLET PO SCH ×2 (09:00→20:32)
[2023-06-28] MEDS: BENAZEPRIL HCL 10 MG TABLET PO SCH (09:00)
[2023-06-28] MEDS: METOPROLOL TARTRATE 25 MG TABLET PO SCH (09:00)
[2023-06-28 20:03] VITALS: RESP 18; TEMP 98.2
[2023-06-28] MEDS: ATORVASTATIN CALCIUM 20 MG TABLET PO SCH (20:32)
[2023-06-28] MEDS: OLANZapine 10 MG TABLET PO SCH (20:32)
[2023-06-28] MEDS: ZOLPIDEM TARTRATE 10 MG TABLET PO PRN (20:53)
[2023-06-29] MEDS: MAG HYDROX/AL HYDROX/SIMETH ES 30 ML SUSPENSION UDCUP PO PRN (00:24)
[2023-06-29 08:09] VITALS: BP 102/69; PULSE 76; RESP 16; TEMP 98; O2SAT 97
[2023-06-29] MEDS: MEGESTROL ACETATE 400 MG/10 ML SUSPENSION UDCUP PO SCH (09:28)
[2023-06-29] MEDS: BENAZEPRIL HCL 10 MG TABLET PO SCH (09:28)
[2023-06-29] MEDS: DIVALPROEX SODIUM 250 MG DR TABLET PO SCH ×2 (09:28→20:34)
[2023-06-29] MEDS: METOPROLOL TARTRATE 25 MG TABLET PO SCH (09:29)
[2023-06-29] MEDS: OLANZapine 10 MG TABLET PO SCH (20:34)
[2023-06-29] MEDS: ATORVASTATIN CALCIUM 20 MG TABLET PO SCH (20:34)
[2023-06-29 21:13] VITALS: RESP 18; TEMP 97.8
[2023-06-30] MEDS: METOPROLOL TARTRATE 25 MG TABLET PO SCH (08:53)
[2023-06-30] MEDS: DIVALPROEX SODIUM 250 MG DR TABLET PO SCH ×2 (08:53→20:03)
[2023-06-30] MEDS: MEGESTROL ACETATE 400 MG/10 ML SUSPENSION UDCUP PO SCH (08:54)
[2023-06-30] MEDS: BENAZEPRIL HCL 10 MG TABLET PO SCH (08:54)
[2023-06-30 11:20] VITALS: RESP 18; TEMP 97.7
[2023-06-30] MEDS: ATORVASTATIN CALCIUM 20 MG TABLET PO SCH (20:03)
[2023-06-30] MEDS: OLANZapine 10 MG TABLET PO SCH (20:03)
[2023-06-30 20:23] VITALS: BP 157/87; PULSE 96; RESP 17; TEMP 97.3; O2SAT 97
[2023-06-30] MEDS: ZOLPIDEM TARTRATE 10 MG TABLET PO PRN (20:50)
[2023-06-30] MEDS: LORazepam 2 MG TABLET PO PRN (20:50)
[2023-07-01 07:58] VITALS: RESP 16
[2023-07-01 08:11] VITALS: RESP 18
[2023-07-01 08:37] VITALS: BP 132/62; PULSE 100; RESP 18; TEMP 97.3; O2SAT 98
[2023-07-01] MEDS: METOPROLOL TARTRATE 25 MG TABLET PO SCH (09:00)
[2023-07-01] MEDS: BENAZEPRIL HCL 10 MG TABLET PO SCH (09:00)
[2023-07-01] MEDS: MEGESTROL ACETATE 400 MG/10 ML SUSPENSION UDCUP PO SCH (09:00)
[2023-07-01] MEDS: DIVALPROEX SODIUM 250 MG DR TABLET PO SCH ×2 (09:00→20:53)
[2023-07-01] MEDS: LORazepam 2 MG TABLET PO PRN (20:52)
[2023-07-01] MEDS: ZOLPIDEM TARTRATE 10 MG TABLET PO PRN (20:52)
[2023-07-01] MEDS: OLANZapine 10 MG TABLET PO SCH (20:53)
[2023-07-01] MEDS: ATORVASTATIN CALCIUM 20 MG TABLET PO SCH (20:53)
[2023-07-01 21:06] VITALS: BP 128/65; PULSE 98; RESP 18; TEMP 97.5
[2023-07-02] MEDS: BENAZEPRIL HCL 10 MG TABLET PO SCH (09:00)
[2023-07-02] MEDS: MEGESTROL ACETATE 400 MG/10 ML SUSPENSION UDCUP PO SCH (09:00)
[2023-07-02] MEDS: METOPROLOL TARTRATE 25 MG TABLET PO SCH (09:00)
[2023-07-02] MEDS: DIVALPROEX SODIUM 250 MG DR TABLET PO SCH ×2 (09:00→20:01)
[2023-07-02 10:03] VITALS: RESP 18
[2023-07-02 20:00] VITALS: BP 131/66; PULSE 104; RESP 18; TEMP 97.6; O2SAT 99
[2023-07-02] MEDS: OLANZapine 10 MG TABLET PO SCH (20:01)
[2023-07-02] MEDS: ATORVASTATIN CALCIUM 20 MG TABLET PO SCH (20:01)
[2023-07-03] MEDS: BENAZEPRIL HCL 10 MG TABLET PO SCH (09:00)
[2023-07-03] MEDS: DIVALPROEX SODIUM 250 MG DR TABLET PO SCH ×2 (09:00→20:23)
[2023-07-03] MEDS: MEGESTROL ACETATE 400 MG/10 ML SUSPENSION UDCUP PO SCH (09:00)
[2023-07-03] MEDS: METOPROLOL TARTRATE 25 MG TABLET PO SCH (09:00)
[2023-07-03 09:36] VITALS: RESP 18
[2023-07-03 10:18] VITALS: BP 125/54; PULSE 68; RESP 18; TEMP 97.6; O2SAT 97
[2023-07-03 20:00] VITALS: BP 120/62; PULSE 94; RESP 18; TEMP 97.6
[2023-07-03] MEDS: LORazepam 2 MG TABLET PO PRN (20:23)
[2023-07-03] MEDS: ZOLPIDEM TARTRATE 10 MG TABLET PO PRN (20:23)
[2023-07-03] MEDS: OLANZapine 10 MG TABLET PO SCH (20:23)
[2023-07-03] MEDS: ATORVASTATIN CALCIUM 20 MG TABLET PO SCH (20:29)
[2023-07-04] MEDS: DIVALPROEX SODIUM 250 MG DR TABLET PO SCH ×2 (08:10→21:02)
[2023-07-04] MEDS: BENAZEPRIL HCL 10 MG TABLET PO SCH (08:11)
[2023-07-04] MEDS: METOPROLOL TARTRATE 25 MG TABLET PO SCH (08:11)
[2023-07-04] MEDS: MEGESTROL ACETATE 400 MG/10 ML SUSPENSION UDCUP PO SCH (08:11)
[2023-07-04 08:24] VITALS: BP 132/78; PULSE 82; RESP 18; TEMP 98; O2SAT 97
[2023-07-04 20:22] VITALS: BP 124/78; PULSE 85; RESP 18; TEMP 97.8; O2SAT 98
[2023-07-04] MEDS: OLANZapine 10 MG TABLET PO SCH (21:02)
[2023-07-04] MEDS: ATORVASTATIN CALCIUM 20 MG TABLET PO SCH (21:02)
[2023-07-05 08:05] VITALS: RESP 18
[2023-07-05] MEDS: BENAZEPRIL HCL 10 MG TABLET PO SCH (09:00)
[2023-07-05] MEDS: METOPROLOL TARTRATE 25 MG TABLET PO SCH (09:00)
[2023-07-05] MEDS: MEGESTROL ACETATE 400 MG/10 ML SUSPENSION UDCUP PO SCH (09:00)
[2023-07-05] MEDS: DIVALPROEX SODIUM 250 MG DR TABLET PO SCH ×2 (09:00→20:13)
[2023-07-05 20:03] VITALS: BP 118/72; PULSE 80; RESP 18; TEMP 97.7; O2SAT 98
[2023-07-05] MEDS: ATORVASTATIN CALCIUM 20 MG TABLET PO SCH (20:13)
[2023-07-05] MEDS: LORazepam 2 MG TABLET PO PRN (20:13)
[2023-07-05] MEDS: OLANZapine 10 MG TABLET PO SCH (20:13)
[2023-07-05] MEDS: ZOLPIDEM TARTRATE 10 MG TABLET PO PRN (21:11)
[2023-07-06 08:09] VITALS: BP 128/72; PULSE 112; RESP 17; TEMP 97.6; O2SAT 97
[2023-07-06] MEDS: MEGESTROL ACETATE 400 MG/10 ML SUSPENSION UDCUP PO SCH (09:00)
[2023-07-06] MEDS: BENAZEPRIL HCL 10 MG TABLET PO SCH (09:00)
[2023-07-06] MEDS: METOPROLOL TARTRATE 25 MG TABLET PO SCH (09:00)
[2023-07-06] MEDS: DIVALPROEX SODIUM 250 MG DR TABLET PO SCH ×2 (09:00→20:11)
[2023-07-06 20:01] VITALS: BP 137/81; PULSE 111; RESP 18; TEMP 98.1; O2SAT 98
[2023-07-06] MEDS: ATORVASTATIN CALCIUM 20 MG TABLET PO SCH (20:11)
[2023-07-06] MEDS: OLANZapine 10 MG TABLET PO SCH (20:11)
[2023-07-06] MEDS: LORazepam 2 MG TABLET PO PRN (20:12)
[2023-07-06] MEDS: ZOLPIDEM TARTRATE 10 MG TABLET PO PRN (21:28)
[2023-07-07 08:20] VITALS: RESP 18
[2023-07-07] MEDS: MEGESTROL ACETATE 400 MG/10 ML SUSPENSION UDCUP PO SCH (09:00)
[2023-07-07] MEDS: METOPROLOL TARTRATE 25 MG TABLET PO SCH (09:00)
[2023-07-07] MEDS: BENAZEPRIL HCL 10 MG TABLET PO SCH (09:00)
[2023-07-07] MEDS: DIVALPROEX SODIUM 250 MG DR TABLET PO SCH ×2 (09:09→20:32)
[2023-07-07 09:18] LABS: CHOL/HDL RATIO 4.2 (3.9-5.7); FREE T4 (FREE THYROXINE) 0.66 ng/dL (0.76-1.46); THYROID STIMULATING HORMONE 20.85 uIU/mL (0.36-3.74)
[2023-07-07 20:05] VITALS: BP 127/76; PULSE 100; RESP 18; TEMP 97.5; O2SAT 99
[2023-07-07] MEDS: LORazepam 2 MG TABLET PO PRN (20:32)
[2023-07-07] MEDS: OLANZapine 10 MG TABLET PO SCH (20:32)
[2023-07-07] MEDS: ATORVASTATIN CALCIUM 20 MG TABLET PO SCH (20:32)
[2023-07-07] MEDS: ZOLPIDEM TARTRATE 10 MG TABLET PO PRN (21:33)
[2023-07-08 08:01] VITALS: BP 105/61; PULSE 102; RESP 17; TEMP 97.3; O2SAT 99
[2023-07-08] MEDS: BENAZEPRIL HCL 10 MG TABLET PO SCH ×2 (08:01→09:00)
[2023-07-08] MEDS: METOPROLOL TARTRATE 25 MG TABLET PO SCH ×2 (08:01→09:00)
[2023-07-08] MEDS: DIVALPROEX SODIUM 250 MG DR TABLET PO SCH ×3 (08:01→20:11)
[2023-07-08] MEDS: MEGESTROL ACETATE 400 MG/10 ML SUSPENSION UDCUP PO SCH ×2 (08:01→09:00)
[2023-07-08 20:03] VITALS: BP 123/63; PULSE 99; RESP 18; TEMP 97.5; O2SAT 98
[2023-07-08] MEDS: ATORVASTATIN CALCIUM 20 MG TABLET PO SCH (20:11)
[2023-07-08] MEDS: ZOLPIDEM TARTRATE 10 MG TABLET PO PRN (20:11)
[2023-07-08] MEDS: LORazepam 2 MG TABLET PO PRN (20:12)
[2023-07-08] MEDS: OLANZapine 10 MG TABLET PO SCH (20:12)
[2023-07-09 08:19] VITALS: BP 119/86; PULSE 83; RESP 18; TEMP 98.9; O2SAT 97
[2023-07-09] MEDS: MEGESTROL ACETATE 400 MG/10 ML SUSPENSION UDCUP PO SCH (09:00)
[2023-07-09] MEDS: METOPROLOL TARTRATE 25 MG TABLET PO SCH (09:00)
[2023-07-09] MEDS: DIVALPROEX SODIUM 250 MG DR TABLET PO SCH ×2 (09:00→20:13)
[2023-07-09] MEDS: BENAZEPRIL HCL 10 MG TABLET PO SCH (09:00)
[2023-07-09 20:00] VITALS: BP 106/59; PULSE 89; RESP 18; TEMP 97.9; O2SAT 97
[2023-07-09] MEDS: OLANZapine 10 MG TABLET PO SCH (20:13)
[2023-07-09] MEDS: LORazepam 2 MG TABLET PO PRN (20:13)
[2023-07-09] MEDS: ATORVASTATIN CALCIUM 20 MG TABLET PO SCH (20:13)
[2023-07-09] MEDS: ZOLPIDEM TARTRATE 10 MG TABLET PO PRN (20:13)
[2023-07-10] MEDS: BENAZEPRIL HCL 10 MG TABLET PO SCH (09:00)
[2023-07-10] MEDS: METOPROLOL TARTRATE 25 MG TABLET PO SCH (09:00)
[2023-07-10] MEDS: DIVALPROEX SODIUM 250 MG DR TABLET PO SCH ×3 (09:00→20:13)
[2023-07-10] MEDS: MEGESTROL ACETATE 400 MG/10 ML SUSPENSION UDCUP PO SCH (09:00)
[2023-07-10 09:03] VITALS: BP 106/61; PULSE 89; RESP 17; TEMP 98.2; O2SAT 99
[2023-07-10] MEDS: LORazepam 2 MG TABLET PO PRN (20:14)
[2023-07-10] MEDS: ATORVASTATIN CALCIUM 20 MG TABLET PO SCH (20:14)
[2023-07-10] MEDS: ZOLPIDEM TARTRATE 10 MG TABLET PO PRN (20:14)
[2023-07-10] MEDS: OLANZapine 10 MG TABLET PO SCH (20:14)
[2023-07-11 04:51] VITALS: BP 133/76; PULSE 99; RESP 16; TEMP 98; O2SAT 99
[2023-07-11 06:00] LABS: GLUCOMETER DEV NAME(LOC) POC.BV; POC SARS-COV2 AG, FIA NEGATIVE (NEGATIVE)
[2023-07-11 08:11] VITALS: BP 122/79; PULSE 76; RESP 16; TEMP 97.8; O2SAT 98
[2023-07-11] MEDS: BENAZEPRIL HCL 10 MG TABLET PO SCH (09:00)
[2023-07-11] MEDS: METOPROLOL TARTRATE 25 MG TABLET PO SCH (09:00)
[2023-07-11] MEDS: MEGESTROL ACETATE 400 MG/10 ML SUSPENSION UDCUP PO SCH (09:00)
[2023-07-11] MEDS: DIVALPROEX SODIUM 250 MG DR TABLET PO SCH ×2 (09:00→20:43)
[2023-07-11 20:00] VITALS: BP 118/72; PULSE 80; RESP 18; TEMP 98
[2023-07-11] MEDS: OLANZapine 10 MG TABLET PO SCH (20:43)
[2023-07-11] MEDS: LORazepam 2 MG TABLET PO PRN (20:43)
[2023-07-11] MEDS: ATORVASTATIN CALCIUM 20 MG TABLET PO SCH (20:43)
[2023-07-11] MEDS: ZOLPIDEM TARTRATE 10 MG TABLET PO PRN (20:44)
[2023-07-12 08:30] VITALS: BP 121/68; PULSE 86; RESP 17; TEMP 98; O2SAT 97
[2023-07-12] MEDS: METOPROLOL TARTRATE 25 MG TABLET PO SCH (09:00)
[2023-07-12] MEDS: MEGESTROL ACETATE 400 MG/10 ML SUSPENSION UDCUP PO SCH (09:00)
[2023-07-12] MEDS: BENAZEPRIL HCL 10 MG TABLET PO SCH (09:00)
[2023-07-12] MEDS: DIVALPROEX SODIUM 500 MG DR TABLET PO SCH (20:17)
[2023-07-12] MEDS: ATORVASTATIN CALCIUM 20 MG TABLET PO SCH (20:18)
[2023-07-12] MEDS: ZOLPIDEM TARTRATE 10 MG TABLET PO PRN (20:18)
[2023-07-12] MEDS: OLANZapine 10 MG TABLET PO SCH (20:18)
[2023-07-12] MEDS: LORazepam 2 MG TABLET PO PRN (20:18)
[2023-07-13] VITALS: RESP 18
[2023-07-13 04:00] VITALS: BP 126/72; PULSE 74; RESP 18; TEMP 98.2
[2023-07-13 08:18] VITALS: BP 121/79; PULSE 82; RESP 18; TEMP 97.9; O2SAT 98
[2023-07-13] MEDS: BENAZEPRIL HCL 10 MG TABLET PO SCH (09:00)
[2023-07-13] MEDS: METOPROLOL TARTRATE 25 MG TABLET PO SCH (09:00)
[2023-07-13] MEDS: MEGESTROL ACETATE 400 MG/10 ML SUSPENSION UDCUP PO SCH (09:00)
[2023-07-13 16:53] VITALS: TEMP 97.9
[2023-07-13] MEDS: ZOLPIDEM TARTRATE 10 MG TABLET PO PRN (20:03)
[2023-07-13] MEDS: OLANZapine 10 MG TABLET PO SCH (20:03)
[2023-07-13] MEDS: LORazepam 2 MG TABLET PO PRN (20:03)
[2023-07-13] MEDS: ATORVASTATIN CALCIUM 20 MG TABLET PO SCH (20:03)
[2023-07-13] MEDS: DIVALPROEX SODIUM 500 MG DR TABLET PO SCH (20:03)
[2023-07-13 20:05] VITALS: BP 141/79; PULSE 109; RESP 18; TEMP 97.5; O2SAT 96
[2023-07-13 21:04] VITALS: TEMP 97.5
[2023-07-14] VITALS (8 sets, daily range): BP systolic 120–133; BP diastolic 73–75; PULSE 83–96; RESP 18; TEMP 97.3–98; O2SAT 99
[2023-07-14] MEDS: METOPROLOL TARTRATE 25 MG TABLET PO SCH (08:53)
[2023-07-14] MEDS: MEGESTROL ACETATE 400 MG/10 ML SUSPENSION UDCUP PO SCH (08:53)
[2023-07-14] MEDS: BENAZEPRIL HCL 10 MG TABLET PO SCH (08:53)
[2023-07-14] MEDS: DIVALPROEX SODIUM 500 MG DR TABLET PO SCH (20:18)
[2023-07-14] MEDS: OLANZapine 10 MG TABLET PO SCH (20:18)
[2023-07-14] MEDS: ATORVASTATIN CALCIUM 20 MG TABLET PO SCH (20:19)
[2023-07-15 00:56] VITALS: TEMP 97.2
[2023-07-15 04:50] VITALS: TEMP 97.8
[2023-07-15 08:13] VITALS: BP 118/73; PULSE 79; RESP 16; TEMP 98; O2SAT 96
[2023-07-15] MEDS: METOPROLOL TARTRATE 25 MG TABLET PO SCH (08:17)
[2023-07-15] MEDS: MEGESTROL ACETATE 400 MG/10 ML SUSPENSION UDCUP PO SCH (08:18)
[2023-07-15] MEDS: BENAZEPRIL HCL 10 MG TABLET PO SCH (08:18)
[2023-07-15 20:00] VITALS: BP 143/81; PULSE 109; RESP 18; TEMP 97.8; O2SAT 97
[2023-07-15] MEDS: DIVALPROEX SODIUM 500 MG DR TABLET PO SCH (20:07)
[2023-07-15] MEDS: ATORVASTATIN CALCIUM 20 MG TABLET PO SCH (20:07)
[2023-07-15] MEDS: LORazepam 2 MG TABLET PO PRN (20:07)
[2023-07-15] MEDS: OLANZapine 10 MG TABLET PO SCH (20:07)
[2023-07-15] MEDS: ZOLPIDEM TARTRATE 10 MG TABLET PO PRN (20:08)
[2023-07-16] MEDS: METOPROLOL TARTRATE 25 MG TABLET PO SCH (09:00)
[2023-07-16] MEDS: BENAZEPRIL HCL 10 MG TABLET PO SCH (09:00)
[2023-07-16] MEDS: MEGESTROL ACETATE 400 MG/10 ML SUSPENSION UDCUP PO SCH (09:00)
[2023-07-16 09:09] VITALS: BP 110/65; PULSE 91; RESP 20; TEMP 97.6; O2SAT 98
[2023-07-16] MEDS: ATORVASTATIN CALCIUM 20 MG TABLET PO SCH (20:18)
[2023-07-16] MEDS: DIVALPROEX SODIUM 500 MG DR TABLET PO SCH (20:18)
[2023-07-16] MEDS: OLANZapine 10 MG TABLET PO SCH (20:18)
[2023-07-16] MEDS: LORazepam 2 MG TABLET PO PRN (20:18)
[2023-07-16 20:24] VITALS: BP 117/72; PULSE 89; RESP 18; TEMP 97.6; O2SAT 96
[2023-07-16] MEDS: ZOLPIDEM TARTRATE 10 MG TABLET PO PRN (21:04)
[2023-07-17 08:29] VITALS: BP 109/52; PULSE 96; RESP 18; TEMP 98; O2SAT 99
[2023-07-17] MEDS: MEGESTROL ACETATE 400 MG/10 ML SUSPENSION UDCUP PO SCH (09:00)
[2023-07-17] MEDS: BENAZEPRIL HCL 10 MG TABLET PO SCH (09:00)
[2023-07-17] MEDS: METOPROLOL TARTRATE 25 MG TABLET PO SCH (09:00)
[2023-07-17] MEDS: ATORVASTATIN CALCIUM 20 MG TABLET PO SCH (20:25)
[2023-07-17] MEDS: DIVALPROEX SODIUM 500 MG DR TABLET PO SCH (20:25)
[2023-07-17] MEDS: ZOLPIDEM TARTRATE 10 MG TABLET PO PRN (20:25)
[2023-07-17] MEDS: OLANZapine 10 MG TABLET PO SCH (20:25)
[2023-07-17] MEDS: LORazepam 2 MG TABLET PO PRN (20:25)
[2023-07-18 02:25] VITALS: RESP 18
[2023-07-18 08:26] VITALS: BP 126/73; PULSE 79; RESP 16; TEMP 98; O2SAT 97
[2023-07-18] MEDS: METOPROLOL TARTRATE 25 MG TABLET PO SCH (09:00)
[2023-07-18] MEDS: MEGESTROL ACETATE 400 MG/10 ML SUSPENSION UDCUP PO SCH (09:00)
[2023-07-18] MEDS: BENAZEPRIL HCL 10 MG TABLET PO SCH (09:00)
[2023-07-18 19:56] VITALS: BP 113/63; PULSE 85; RESP 18; TEMP 97.9; O2SAT 98
[2023-07-18 20:01] VITALS: BP 113/63; PULSE 85; RESP 18; TEMP 97.9; O2SAT 98
[2023-07-18] MEDS: ZOLPIDEM TARTRATE 10 MG TABLET PO PRN (20:23)
[2023-07-18] MEDS: DIVALPROEX SODIUM 500 MG DR TABLET PO SCH (20:23)
[2023-07-18] MEDS: OLANZapine 10 MG TABLET PO SCH (20:24)
[2023-07-18] MEDS: ATORVASTATIN CALCIUM 20 MG TABLET PO SCH (20:24)
[2023-07-19 08:16] VITALS: BP 123/79; PULSE 79; RESP 16; TEMP 98; O2SAT 97
[2023-07-19] MEDS: BENAZEPRIL HCL 10 MG TABLET PO SCH (09:00)
[2023-07-19] MEDS: METOPROLOL TARTRATE 25 MG TABLET PO SCH (09:00)
[2023-07-19] MEDS: MEGESTROL ACETATE 400 MG/10 ML SUSPENSION UDCUP PO SCH (09:00)
[2023-07-19 20:01] VITALS: BP 146/78; PULSE 102; RESP 18; TEMP 98.2; O2SAT 97
[2023-07-19] MEDS: OLANZapine 10 MG TABLET PO SCH (20:23)
[2023-07-19] MEDS: DIVALPROEX SODIUM 500 MG DR TABLET PO SCH (20:23)
[2023-07-19] MEDS: ATORVASTATIN CALCIUM 20 MG TABLET PO SCH (20:23)
[2023-07-19] MEDS: ZOLPIDEM TARTRATE 10 MG TABLET PO PRN (20:23)
[2023-07-20 08:20] VITALS: BP 126/72; PULSE 92; RESP 16; TEMP 98; O2SAT 98
[2023-07-20] MEDS: BENAZEPRIL HCL 10 MG TABLET PO SCH (09:00)
[2023-07-20] MEDS: MEGESTROL ACETATE 400 MG/10 ML SUSPENSION UDCUP PO SCH (09:00)
[2023-07-20] MEDS: METOPROLOL TARTRATE 25 MG TABLET PO SCH (09:00)
[2023-07-20] MEDS: OLANZapine 10 MG TABLET PO SCH (20:01)
[2023-07-20] MEDS: ATORVASTATIN CALCIUM 20 MG TABLET PO SCH (20:01)
[2023-07-20] MEDS: LORazepam 2 MG TABLET PO PRN (20:01)
[2023-07-20] MEDS: DIVALPROEX SODIUM 500 MG DR TABLET PO SCH (20:01)
[2023-07-20] MEDS: ZOLPIDEM TARTRATE 10 MG TABLET PO PRN (20:01)
[2023-07-20 20:21] VITALS: BP 146/80; PULSE 94; RESP 18; TEMP 97.6; O2SAT 98
[2023-07-21 08:20] VITALS: BP 129/82; PULSE 84; RESP 18; TEMP 98; O2SAT 99
[2023-07-21] MEDS: BENAZEPRIL HCL 10 MG TABLET PO SCH (09:00)
[2023-07-21] MEDS: MEGESTROL ACETATE 400 MG/10 ML SUSPENSION UDCUP PO SCH (09:00)
[2023-07-21] MEDS: METOPROLOL TARTRATE 25 MG TABLET PO SCH (09:00)
[2023-07-21] MEDS: DIVALPROEX SODIUM 500 MG DR TABLET PO SCH (20:02)
[2023-07-21] MEDS: OLANZapine 10 MG TABLET PO SCH (20:02)
[2023-07-21 20:06] VITALS: BP 131/78; PULSE 95; RESP 20; TEMP 97.7; O2SAT 99
[2023-07-21] MEDS: ATORVASTATIN CALCIUM 20 MG TABLET PO SCH (20:09)
[2023-07-22 08:10] VITALS: BP 120/78; PULSE 106; RESP 17; TEMP 97.4; O2SAT 100
[2023-07-22] MEDS: BENAZEPRIL HCL 10 MG TABLET PO SCH (09:00)
[2023-07-22] MEDS: METOPROLOL TARTRATE 25 MG TABLET PO SCH (09:00)
[2023-07-22] MEDS: MEGESTROL ACETATE 400 MG/10 ML SUSPENSION UDCUP PO SCH (09:00)
[2023-07-22] MEDS: ZOLPIDEM TARTRATE 10 MG TABLET PO PRN (20:26)
[2023-07-22] MEDS: DIVALPROEX SODIUM 500 MG DR TABLET PO SCH (20:26)
[2023-07-22] MEDS: LORazepam 2 MG TABLET PO PRN (20:26)
[2023-07-22] MEDS: OLANZapine 10 MG TABLET PO SCH (20:26)
[2023-07-22] MEDS: ATORVASTATIN CALCIUM 20 MG TABLET PO SCH (20:26)
[2023-07-22 21:58] VITALS: BP 119/71; PULSE 82; RESP 18; TEMP 97.9; O2SAT 96
[2023-07-23 08:17] VITALS: BP 126/79; PULSE 80; RESP 16; TEMP 97.6; O2SAT 96
[2023-07-23] MEDS: METOPROLOL TARTRATE 25 MG TABLET PO SCH (08:49)
[2023-07-23] MEDS: MEGESTROL ACETATE 400 MG/10 ML SUSPENSION UDCUP PO SCH (08:49)
[2023-07-23] MEDS: BENAZEPRIL HCL 10 MG TABLET PO SCH (08:49)
[2023-07-23] MEDS ORDERED: LORazepam 2 MG TABLET PO PRN (20:15)
[2023-07-23] MEDS: ATORVASTATIN CALCIUM 20 MG TABLET PO SCH (21:00)
[2023-07-23] MEDS: OLANZapine 10 MG TABLET PO SCH (21:26)
[2023-07-23] MEDS: DIVALPROEX SODIUM 500 MG DR TABLET PO SCH (21:26)
[2023-07-23 21:36] VITALS: BP 132/75; PULSE 75; RESP 18; TEMP 98; O2SAT 97
[2023-07-24 08:09] VITALS: BP 128/83; PULSE 77; RESP 16; TEMP 98; O2SAT 96
[2023-07-24] MEDS: BENAZEPRIL HCL 10 MG TABLET PO SCH ×2 (09:00→09:32)
[2023-07-24] MEDS: METOPROLOL TARTRATE 25 MG TABLET PO SCH ×2 (09:00→09:32)
[2023-07-24] MEDS: MEGESTROL ACETATE 400 MG/10 ML SUSPENSION UDCUP PO SCH (09:32)
[2023-07-24] MEDS: ZOLPIDEM TARTRATE 10 MG TABLET PO PRN (20:22)
[2023-07-24] MEDS: OLANZapine 10 MG TABLET PO SCH (20:22)
[2023-07-24] MEDS: DIVALPROEX SODIUM 500 MG DR TABLET PO SCH (20:22)
[2023-07-24 20:28] VITALS: BP 138/81; PULSE 81; RESP 18; TEMP 97.3; O2SAT 98
[2023-07-24] MEDS: ATORVASTATIN CALCIUM 20 MG TABLET PO SCH (21:01)
[2023-07-25 08:04] VITALS: BP 137/76; PULSE 107; RESP 16; TEMP 97.2; O2SAT 99
[2023-07-25] MEDS: MEGESTROL ACETATE 400 MG/10 ML SUSPENSION UDCUP PO SCH (09:00)
[2023-07-25] MEDS: METOPROLOL TARTRATE 25 MG TABLET PO SCH (09:00)
[2023-07-25] MEDS: BENAZEPRIL HCL 10 MG TABLET PO SCH (09:00)
[2023-07-25] MEDS: ATORVASTATIN CALCIUM 20 MG TABLET PO SCH (20:01)
[2023-07-25] MEDS: DIVALPROEX SODIUM 500 MG DR TABLET PO SCH (20:01)
[2023-07-25] MEDS: OLANZapine 10 MG TABLET PO SCH (20:01)
[2023-07-25 20:23] VITALS: BP 126/73; PULSE 90; RESP 17; TEMP 97; O2SAT 98
[2023-07-26 08:18] VITALS: BP 107/59; PULSE 86; RESP 18; TEMP 97.7; O2SAT 98
[2023-07-26] MEDS: MEGESTROL ACETATE 400 MG/10 ML SUSPENSION UDCUP PO SCH (09:00)
[2023-07-26] MEDS: METOPROLOL TARTRATE 25 MG TABLET PO SCH (09:00)
[2023-07-26] MEDS: BENAZEPRIL HCL 10 MG TABLET PO SCH (09:00)
[2023-07-26] MEDS: ATORVASTATIN CALCIUM 20 MG TABLET PO SCH (20:04)
[2023-07-26] MEDS: DIVALPROEX SODIUM 500 MG DR TABLET PO SCH (20:04)
[2023-07-26] MEDS: OLANZapine 10 MG TABLET PO SCH (20:04)
[2023-07-26 20:26] VITALS: BP 122/62; PULSE 88; RESP 18; TEMP 97.1; O2SAT 99
[2023-07-27] MEDS: METOPROLOL TARTRATE 25 MG TABLET PO SCH (08:01)
[2023-07-27] MEDS: BENAZEPRIL HCL 10 MG TABLET PO SCH (08:01)
[2023-07-27] MEDS: MEGESTROL ACETATE 400 MG/10 ML SUSPENSION UDCUP PO SCH (08:02)
[2023-07-27 08:15] VITALS: BP 126/80; PULSE 86; RESP 16; TEMP 97.9; O2SAT 97
[2023-07-27 11:06] LABS: GLUCOMETER DEV NAME(LOC) POC.BV; POC SARS-COV2 AG, FIA NEGATIVE (NEGATIVE)
[2023-07-27] MEDS ORDERED: DICLOFENAC SODIUM 1% 100 GM GEL [2GM] TP PRN (12:30)
[2023-07-27 20:03] VITALS: BP 136/75; PULSE 88; RESP 19; TEMP 97.8; O2SAT 98
[2023-07-27] MEDS: OLANZapine 10 MG TABLET PO SCH (20:17)
[2023-07-27] MEDS: DIVALPROEX SODIUM 500 MG DR TABLET PO SCH (20:17)
[2023-07-27] MEDS: ATORVASTATIN CALCIUM 20 MG TABLET PO SCH (20:17)
[2023-07-27] MEDS: ZOLPIDEM TARTRATE 10 MG TABLET PO PRN (20:18)
[2023-07-28 08:08] LABS: BASOPHILS % (AUTO) 0.5 % (0.0-2.0); EOSINOPHILS % (AUTO) 3.9 % (1.0-6.0); HEMATOCRIT 37.6 % (36-46); HEMOGLOBIN 12.3 g/dL (12.0-16.0); MEAN CORPUSCULAR HEMOGLOBIN 31.3 pg (26.0-34.0); MEAN CORPUSCULAR HGB CONC 32.7 G/dL (31.0-37.0); MEAN CORPUSCULAR VOLUME 96 fL (80-100); MONOCYTES # (AUTO) 0.6 K/uL (0.1-1.0); MONOCYTES % (AUTO) 8.2 % (2.0-9.0); NEUTROPHILS # (AUTO) 2.1 K/uL (1.8-7.7); NEUTROPHILS % (AUTO) 30.4 % (40.0-70.0); PLATELET COUNT (AUTO) 139 K/uL (150-450); RED BLOOD CELL COUNT(AUTO) 3.93 MIL/uL (4.00-5.20); RED CELL DISTRIBUTION WIDTH 14.2 % (11.5-14.5)
[2023-07-28 08:15] VITALS: BP 123/79; PULSE 79; RESP 16; TEMP 98; O2SAT 97
[2023-07-28 08:31] LABS: ALBUMIN 2.5 g/dL (3.4-5.0); ALKALINE PHOSPHATASE 57 U/L (46-116); ANION GAP 7 mmol/L (8-16); ASPARTATE AMINOTRANSFERASE 8 U/L (15-37); BILIRUBIN,TOTAL 0.2 mg/dL (0.1-1.0); CALCIUM, TOTAL 9.2 mg/dL (8.8-10.5); CARBON DIOXIDE 24 mmol/L (22-29); CHLORIDE 108 mmol/L (98-107); CHOL/HDL RATIO 3.7 (3.9-5.7); CHOLESTEROL 119 mg/dL (131-200); CREATININE 0.66 mg/dL (0.60-1.30); GLOMERULAR FILTR. RATE CALC > 60 mL/min (>60); GLUCOSE,RANDOM 84 mg/dL (70-110); HDL CHOLESTEROL 32 mg/dL (40-60); LDL CHOL (CALC.) 66 mg/dL (0-130); POTASSIUM 4.1 mmol/L (3.5-5.1); SODIUM SERUM 139 mmol/L (136-145); TOTAL PROTEIN, SERUM 5.6 g/dL (6.4-8.2); TRIGLYCERIDES 104 mg/dL (15-150); UREA NITROGEN, BLOOD 16 mg/dL (7-18)
[2023-07-28 08:49] LABS: ALANINE AMINOTRANSFERASE < 6 U/L (12-78)
[2023-07-28] MEDS: MEGESTROL ACETATE 400 MG/10 ML SUSPENSION UDCUP PO SCH (09:00)
[2023-07-28] MEDS: BENAZEPRIL HCL 10 MG TABLET PO SCH (09:00)
[2023-07-28] MEDS: METOPROLOL TARTRATE 25 MG TABLET PO SCH (09:00)
[2023-07-28 09:16] LABS: GLUCOMETER DEV NAME(LOC) POC.BV; POC SARS-COV2 AG, FIA NEGATIVE (NEGATIVE)
[2023-07-28] MEDS: ATORVASTATIN CALCIUM 20 MG TABLET PO SCH (20:29)
[2023-07-28] MEDS: DIVALPROEX SODIUM 500 MG DR TABLET PO SCH (20:30)
[2023-07-28] MEDS: OLANZapine 10 MG TABLET PO SCH (20:30)
[2023-07-28 20:49] VITALS: BP 110/62; PULSE 83; RESP 18; TEMP 97.1; O2SAT 98
[2023-07-28] MEDS: MAG HYDROX/AL HYDROX/SIMETH ES 30 ML SUSPENSION UDCUP PO PRN (22:16)
[2023-07-29 07:21] LABS: GLUCOMETER DEV NAME(LOC) POC.BV; POC SARS-COV2 AG, FIA NEGATIVE (NEGATIVE)
[2023-07-29 08:05] VITALS: BP 118/79; PULSE 82; RESP 16; TEMP 97.8; O2SAT 96
[2023-07-29] MEDS ORDERED: OLAN10TA74 PO (08:27)
[2023-07-29] MEDS ORDERED: DIVA-112 PO (08:27)
== END 2023-07-29 12:24 | DRG 750 ==
LOC: EMS 17:28 → B3A 05-12 00:18
PROVIDERS: ADMIT Psychiatry & Neurology Psychiatry; ATTEND Psychiatry & Neurology Psychiatry
DX: F20.0 Paranoid schizophrenia (principal); E03.9 Hypothyroidism, unspecified; Z20.822 Contact with and (suspected) exposure to COVID-19; E78.5 Hyperlipidemia, unspecified; G47.00 Insomnia, unspecified; I10 Essential (primary) hypertension; Z79.899 Other long term (current) drug therapy; Z87.891 Personal history of nicotine dependence
CPT/HCPCS: 71046; 80053; 80061; 80164; 82140; 84439; 84443; 85025; 87081; 99285; G0480; J1200; J1630; J2060; J2250; 36415-L1; 36415-TC